=== PATIENT | female | born 1975 | race American Indian/Alaskan Native ===

== ENCOUNTER 2021-04-23 16:33 | Inpatient (IN) | payer BC ==
[2021-04-23] MEDS ORDERED: ACETAMINOPHEN 500 MG TAB PO ONE (19:00)
--- NOTE | 2021-04-23 19:01 | Emergency Department Report ---
Blank Doc - Documentation Documentation: 46 old female that presents with tachycardia, fever, upper respiratory symptoms. 1- This is a initial triage assessment/medical screening only. Full assessment and work-up will be completed once the patient is in proper hospital gown, ED bed and in a private room setting. This initial assessment/diagnostic orders/clinical plan/ treatment(s) is/are subject to change based on pt's health status, clinical progression and re-assessment by fellow clinical providers in the ED. Further treatment and workup at subsequent clinical providers discretion. Patient/guardians urged not to elope from ED as their condition may be serious if not clinically assessed and managed. 2-sepsis work-up due to tachycardia and fever. 3-Tylenol for fever
[2021-04-23 20:01] LABS: Basophils % (Auto) 0.6 % (0.0-1.8); Eosinophils % (Auto) 0.1 % (0.0-4.3); Hematocrit 38.3 % (30.3-42.9); Hemoglobin 12.7 gm/dl (10.1-14.3); Lymphocytes # (Auto) 0.7 K/mm3 (1.2-5.4); Lymphocytes % (Auto) 14.9 % (13.4-35.0); Mean Corpuscular HGB Conc 33 % (30-34); Mean Corpuscular Volume 77 fl (79-97); Monocytes # (Auto) 0.3 K/mm3 (0.0-0.8); Monocytes % (Auto) 6.8 % (0.0-7.3); Platelet Count 196 K/mm3 (140-440); Red Cell Distribution Width 16.1 % (13.2-15.2)
[2021-04-23 20:09] LABS: Albumin 3.5 g/dL (3.9-5)
[2021-04-23 20:09] LABS: INR 0.93 (0.87-1.13)
[2021-04-23 20:10] LABS: Partial Thromboplastin Time 37.5 Sec. (24.2-36.6)
--- NOTE | 2021-04-23 20:42 | XRay Report ---
XR chest routine 2V INDICATION / CLINICAL INFORMATION: Chest Pain. COMPARISON: None available. FINDINGS: Findings in the chest are accentuated by body habitus and phase of inspiration. SUPPORT DEVICES: None. HEART /PULMONARY VASCULATURE: No significant abnormality. LUNGS / PLEURA: Patchy bibasilar airspace opacities are present. No pneumothorax. ADDITIONAL FINDINGS: No significant additional findings. IMPRESSION: Patchy bibasilar airspace opacities, concerning for pneumonia. Signer Name: Mynor Prado MD Signed: 04/23/2021 8:38 PM Workstation Name: [id number]
--- NOTE | 2021-04-24 04:12 | Emergency Department Report ---
ED Shortness of Breath HPI - General Chief Complaint: Dyspnea/Respdistress Stated Complaint: SOB/FEVER/DIAHEREA/COUGH Time Seen by Provider: 04/23/21 19:01 Source: patient Mode of arrival: Wheelchair Limitations: Physical Limitation - History of Present Illness Initial Comments: 46-year-old female, reports prior history of CHF, presents to ED with shortness of breath. Patient reports cold-like symptoms for the past 10 days. She reports fever, cough, shortness of breath, diarrhea. Patient states she got tested for Covid a couple days ago but has not yet received the results. Patient is unvaccinated. MD Complaint: shortness of breath -: days(s) (10) Severity: moderate Consistency: constant Improves With: nothing Worsens With: exertion, coughing Context: recent URI Associated Symptoms: fever, cough Treatments Prior to Arrival: none - Related Data Home Oxygen Therapy: No Previous Rx's Medication Instructions Recorded Last Taken Type Albuterol Mdi (or & Nicu Only) 1 puff IH Q4-6H PRN #1 inha 08/28/18 Unknown Rx [ProAir HFA Inhaler] guaiFENesin/CODEINE [Robitussin AC] 5 ml PO Q6H PRN #120 ml 08/28/18 Unknown Rx levoFLOXacin [Levaquin TAB] 500 mg PO QDAY #7 tablet 08/28/18 Unknown Rx Allergies Allergy/AdvReac Type Severity Reaction Status Date / Time No Known Allergies Allergy Unverified 08/28/18 00:21 ED Review of Systems ROS: Stated complaint: SOB/FEVER/DIAHEREA/COUGH Other details as noted in HPI Comment: All other systems reviewed and negative Constitutional: fever, weakness Respiratory: cough, shortness of breath Gastrointestinal: diarrhea ED Past Medical Hx - Past Medical History Previous Medical History?: Yes Hx Hypertension: Yes Hx Congestive Heart Failure: Yes Additional medical history: Obesity - Surgical History Past Surgical History?: Yes Additional Surgical History: X 2 - Social History Smoking Status: Current Every Day Smoker Substance Use Type: None - Medications Home Medications: Home Medications Medication Instructions Recorded Confirmed Last Taken Type Albuterol Mdi (or & Nicu Only) 1 puff IH Q4-6H PRN #1 inha 08/28/18 Unknown Rx [ProAir HFA Inhaler] guaiFENesin/CODEINE [Robitussin AC] 5 ml PO Q6H PRN #120 ml 08/28/18 Unknown Rx levoFLOXacin [Levaquin TAB] 500 mg PO QDAY #7 tablet 08/28/18 Unknown Rx ED Physical Exam - General Limitations: Physical Limitation General appearance: alert, obese - Head Head exam: Present: atraumatic, normocephalic - Eye Eye exam: Present: normal appearance, EOMI - ENT ENT exam: Present: mucous membranes moist - Neck Neck exam: Present: normal inspection - Respiratory Respiratory exam: Present: respiratory distress, other (Tachypneic, actively coughing) - Cardiovascular Cardiovascular Exam: Present: normal rhythm, tachycardia - GI/Abdominal GI/Abdominal exam: Present: soft. Absent: distended, tenderness - Extremities Exam Extremities exam: Present: normal inspection - Neurological Exam Neurological exam: Present: alert, oriented X3 - Psychiatric Psychiatric exam: Present: normal affect, normal mood - Skin Skin exam: Present: warm, dry, intact, normal color ED Course Vital Signs 04/23/21 18:56 Temperature 102.1 F H Pulse Rate 134 H Respiratory 24 Rate Blood Pressure 110/83 O2 Sat by Pulse 96 Oximetry ED Medical Decision Making - Lab Data Result diagrams: 04/23/21 19:40 04/23/21 19:34 - EKG Data -: EKG Interpreted by Mt EKG shows normal: sinus rhythm, axis, intervals, QRS complexes, ST-T waves Rate: tachycardia - EKG Data Interpretation: no acute changes - Radiology Data Radiology results: report reviewed, image reviewed - Medical Decision Making 46-year-old female, unvaccinated, presents to ED with cold-like symptoms. Patient is tachypneic, with respiratory rate in the 30s, and hypoxic, with O2 sats dropping to 89%. Patient placed on 4 L O2 via nasal cannula. Chest x-ray shows bilateral pneumonia. Covid markers sent. Blood cultures drawn. Patient given Rocephin, azithromycin, Decadron. She will be admitted to hospitalist, Dr. Rivera, for further management. - Differential Diagnosis COVID-19, pneumonia Critical Care Time: Yes Critical care time in (mins) excluding proc time.: 35 Critical care attestation.: If time is entered above; I have spent that time in minutes in the direct care of this critically ill patient, excluding procedure time. Critical Care Time: 35 min ED Disposition Clinical Impression: Pneumonia, Sepsis, Suspected COVID-19 virus infection, Acute respiratory failure with hypoxia Disposition: ADMITTED INPATIENT Is pt being admited?: Yes Condition: Stable Instructions: Bacterial Pneumonia (ED) Referrals: PRIMARY CARE, [Primary Care Provider] - 3-5 Days Time of Disposition: 04:48
[2021-04-24] MEDS ORDERED: AZITHROMYCIN 250 MG TAB PO ONE (04:23)
[2021-04-24] MEDS ORDERED: cefTRIAXone/NS 1 GM/50 ML 1 GM/50 ML BAG IV ONE (04:23)
[2021-04-24] MEDS ORDERED: DEXAMETHASONE 4 MG TAB PO ONE (04:23)
[2021-04-24] MEDS ORDERED: IBUPROFEN 800 MG TAB PO ONE (05:02)
[2021-04-24] MEDS ORDERED: ACETAMINOPHEN 325 MG TAB PO PRN (05:38)
[2021-04-24] MEDS ORDERED: oxyCODONE /ACETAMINOPHEN 5-325MG TAB PO PRN (05:38)
[2021-04-24] MEDS ORDERED: ONDANSETRON 4 MG/2 ML INJ IV PRN (05:38)
[2021-04-24] MEDS ORDERED: ALBUTEROL 2.5 MG/3 ML NEBU IH PRN (05:38)
[2021-04-24] MEDS ORDERED: HYDROmorphone 1 MG/1 ML INJ IV PRN (05:38)
[2021-04-24] MEDS ORDERED: ALBUTEROL 8.5 GM MDI INHALATION IH PRN (05:40)
[2021-04-24] MEDS ORDERED: guaiFENesin/CODEINE 100-10MG ORAL LIQD 5 ML PO PRN (05:40)
--- NOTE | 2021-04-24 05:46 | History and Physical Report ---
History of Present Illness Date of examination: 04/24/21 Date of admission: 04/24/21 Chief complaint: Shortness of breath fever cough Covid like symptom History of present illness: 46-year-old female with past medical history of congestive heart failure was brought to the emergency room because patient complained of progressive shortness of breath associated with cough and fever for the last 10 days .she reports fever, cough, shortness of breath, diarrhea. Patient states she got tested for Covid a couple days ago but has not yet received the results. Patient is unvaccinated. In the emergency room patient chest x-ray showed patchy bibasilar airspace opaci ties concerning for pneumonia. Med rec is done . Advance discharge planning is initiated Past History Past Medical History: heart failure, other (Obesity) Medications and Allergies Allergies Allergy/AdvReac Type Severity Reaction Status Date / Time No Known Allergies Allergy Verified 04/24/21 05:47 Home Medications Medication Instructions Recorded Confirmed Last Taken Type Albuterol Mdi (or & Nicu Only) 1 puff IH Q4-6H PRN #1 inha 08/28/18 Unknown Rx [ProAir HFA Inhaler] guaiFENesin/CODEINE [Robitussin AC] 5 ml PO Q6H PRN #120 ml 08/28/18 Unknown Rx levoFLOXacin [Levaquin TAB] 500 mg PO QDAY #7 tablet 08/28/18 Unknown Rx Review of Systems All systems: negative Constitutional: fever Cardiovascular: shortness of breath, dyspnea on exertion Respiratory: cough, shortness of breath, dyspnea on exertion Exam - Constitutional Vitals: Temp Pulse Resp BP Pulse Ox 100.5 F H 119 H 33 H 153/91 89 04/24/21 05:33 04/24/21 05:33 04/24/21 05:33 04/24/21 05:33 04/24/21 05:39 General appearance: Present: no acute distress, well-nourished - EENT Eyes: Present: PERRL ENT: hearing intact, clear oral mucosa - Neck Neck: Present: supple, normal ROM - Respiratory Respiratory effort: normal Respiratory: bilateral: diminished - Cardiovascular Heart Sounds: Present: S1 & S2. Absent: rub, click - Extremities Extremities: pulses symmetrical, No edema Peripheral Pulses: within normal limits - Abdominal General gastrointestinal: Present: soft, non-tender, non-distended, normal bowel sounds Female genitourinary: Present: normal - Integumentary Integumentary: Present: clear, warm, dry - Musculoskeletal Musculoskeletal: gait normal, strength equal bilaterally - Psychiatric Psychiatric: appropriate mood/affect, intact judgment & insight - Neurologic Neurologic: CNII-XII intact, moves all extremities Results - Labs CBC & Chem 7: 04/23/21 19:40 04/23/21 19:34 Labs: Laboratory Last Values WBC 4.5 K/mm3 (4.5-11.0) 04/23/21 19:40 RBC 5.00 M/mm3 (3.65-5.03) 04/23/21 19:40 Hgb 12.7 gm/dl (10.1-14.3) 04/23/21 19:40 Hct 38.3 % (30.3-42.9) 04/23/21 19:40 MCV 77 fl (79-97) L 04/23/21 19:40 MCH 25 pg (28-32) L 04/23/21 19:40 MCHC 33 % (30-34) 04/23/21 19:40 RDW 16.1 % (13.2-15.2) H 04/23/21 19:40 Plt Count 196 K/mm3 (140-440) 04/23/21 19:40 Lymph % (Auto) 14.9 % (13.4-35.0) 04/23/21 19:40 [place] % (Auto) 6.8 % (0.0-7.3) 04/23/21 19:40 Eos % (Auto) 0.1 % (0.0-4.3) 04/23/21 19:40 Baso % (Auto) 0.6 % (0.0-1.8) 04/23/21 19:40 Lymph # (Auto) 0.7 K/mm3 (1.2-5.4) L 04/23/21 19:40 [place]ett # (Auto) 0.3 K/mm3 (0.0-0.8) 04/23/21 19:40 Eos # (Auto) 0.0 K/mm3 (0.0-0.4) 04/23/21 19:40 Baso # (Auto) 0.0 K/mm3 (0.0-0.1) 04/23/21 19:40 Seg Neutrophils % 77.6 % (40.0-70.0) H 04/23/21 19:40 Seg Neutrophils # 3.5 K/mm3 (1.8-7.7) 04/23/21 19:40 PT 13.1 Sec. (12.2-14.9) 04/23/21 19:40 INR 0.93 (0.87-1.13) 04/23/21 19:40 APTT 37.5 Sec. (24.2-36.6) H 04/23/21 19:40 Sodium 132 mmol/L (137-145) L 04/23/21 19:34 Potassium 3.9 mmol/L (3.6-5.0) 04/23/21 19:34 Chloride 95.9 mmol/L (98-107) L 04/23/21 19:34 Carbon Dioxide 21 mmol/L (22-30) L 04/23/21 19:34 Anion Gap 19 mmol/L 04/23/21 19:34 BUN 13 mg/dL (7-17) 04/23/21 19:34 Creatinine 1.3 mg/dL (0.6-1.2) H 04/23/21 19:34 Estimated GFR 54 ml/min 04/23/21 19:34 BUN/Creatinine Ratio 10 % 04/23/21 19:34 Glucose 100 mg/dL (65-100) 04/23/21 19:34 Lactic Acid 1.10 mmol/L (0.7-2.0) 04/23/21 23:24 Calcium 9.0 mg/dL (8.4-10.2) 04/23/21 19:34 Total Bilirubin 0.20 mg/dL (0.1-1.2) 04/23/21 19:34 AST 88 units/L (5-40) H 04/23/21 19:34 ALT 28 units/L (7-56) 04/23/21 19:34 Alkaline Phosphatase 25 units/L (35-129) L 04/23/21 19:34 Total Protein 7.4 g/dL (6.3-8.2) 04/23/21 19:34 Albumin 3.5 g/dL (3.9-5) L 04/23/21 19:34 Albumin/Globulin Ratio 0.9 % 04/23/21 19:34 HCG, Qual Negative (Negative) 04/23/21 19:40 Microbiology: Microbiology 04/23/21 19:34 Peripheral/Venous Blood Culture - Preliminary Culture in Progress 04/23/21 19:34 Peripheral/Venous Blood Culture - Preliminary Culture in Progress - Imaging and Cardiology Chest x-ray: report reviewed Assessment and Plan VTE prophylaxis?: Chemical Plan of care discussed with patient/family: Yes - Patient Problems (1) Acute respiratory failure with hypoxia Current Visit: Yes Status: Acute Plan to address problem: Admit the patient to the medical telemetry. Oxygen via nasal penetrator per minute DuoNeb by nebulizer every 4 hours. Albuterol via nebulizer every 4 hours as needed. Dexamethasone 6 mg IV daily. Rocephin 2 g IV daily and Zithromax 500 mg IV daily. We will do the blood cultures sputum culture. Follow Covid PCR and Covid inflammatory marker. We also consult infectious disease evaluation (2) Suspected COVID-19 virus infection Current Visit: Yes Status: Acute Plan to address problem: Oxygen via nasal penetrator per minute DuoNeb by nebulizer every 4 hours. Albuterol via nebulizer every 4 hours as needed. Dexamethasone 6 mg IV daily. Rocephin 2 g IV daily and Zithromax 500 mg IV daily. We will do the blood cul tures sputum culture. Follow Covid PCR and Covid inflammatory marker. We also consult infectious disease evaluation (3) Pneumonia Current Visit: Yes Status: Acute Plan to address problem: Rocephin 2 g IV daily and Zithromax 500 mg IV daily. We will do the blood cultures sputum culture. Follow Covid PCR and Covid inflammatory marker. We also consult infectious disease evaluation (4) Congestive heart failure Current Visit: Yes Status: Acute Plan to address problem: Stable we will continue the home medication. We will monitor the patient closely (5) Obesity Current Visit: Yes Status: Acute Plan to address problem: We counseled the patient regarding weight reduction and diet and exercise (6) DVT prophylaxis Current Visit: Yes Status: Acute Plan to address problem: Heparin 5000 units subcu every 8 hours for DVT prophylaxis. Pepcid 20 mg p.o. twice daily for GI prophylaxis. Patient is a full code
[2021-04-24] MEDS ORDERED: cefTRIAXone/NS 2 GM/100 ML 2 GM/100 ML BAG IV SCH (06:00)
[2021-04-24] MEDS ORDERED: HEPARIN 5,000 UNIT/1 ML VIAL SUB-Q SCH (06:00)
[2021-04-24] MEDS ORDERED: AZITHROMYCIN/NS 500 MG/250 ML 500 MG/250 ML BAG IV SCH (06:00)
[2021-04-24 11:05] LABS: C-Reactive Protein 6.2 mg/dL (0.00-1.30)
--- NOTE | 2021-04-24 11:07 | Electrocardiograph Report ---
[facility] Test Date: 2021-04-23 Test Time: 19:07:57 Pat Name: SONYA MEANS Department: Room: [place] [address] Gender: F Building Carpenter Helper: CONI : 1975 Requested By: RENATA BRAXTON Order Number: [id number] Reading MD: Romel Shelby Measurements Intervals [place] Rate: 123 P: 49 MN: 128 QRS: -1 QRSD: 78 T: 16 QT: 304 QTc: 435 Interpretive Statements Sinus tachycardia Probable left atrial enlargement Anterior Q waves, possibly due to LVH No previous ECG available for comparison Electronically Signed On 04-24-2021 11:07:17 EDT by Romel Shelby
--- NOTE | 2021-04-24 12:12 | Event Note ---
Date: 04/24/21 Patient seen and examined, still with shortness of breath, Patients states she has a hx of CHF but was diagnosed a few years ago but has not been on any medications, she did not get covid vaccine, there is no lower ext edema except for noted morbid obesity. she is anxious and continues on 4 liters of oxygen. Will continue current therapy at this time.
--- NOTE | 2021-04-24 14:03 | Consultation ---
History of Present Illness Consult date: 04/24/21 History of present illness: 46-year-old female with past medical history of congestive heart failure was brought to the emergency room because patient complained of progressive shortness of breath associated with cough and fever for the last 10 days .she reports fever, cough, shortness of breath, diarrhea. Patient states she got tested for Covid a couple days ago but has not yet received the results. Patient is unvaccinated. In the emergency room patient chest x-ray showed patchy bibasilar airspace opacities concerning for pneumonia. Past History Past Medical History: heart failure, other (Obesity) Medications and Allergies Allergies Allergy/AdvReac Type Severity Reaction Status Date / Time No Known Allergies Allergy Verified 04/24/21 05:47 Home Medications Medication Instructions Recorded Confirmed Last Taken Type Albuterol Mdi (or & Nicu Only) 1 puff IH Q4-6H PRN #1 inha 08/28/18 Unknown Rx [ProAir HFA Inhaler] guaiFENesin/CODEINE [Robitussin AC] 5 ml PO Q6H PRN #120 ml 08/28/18 Unknown Rx levoFLOXacin [Levaquin TAB] 500 mg PO QDAY #7 tablet 08/28/18 Unknown Rx Active Meds: Active Medications Acetaminophen (Acetaminophen 325 Mg Tab) 650 mg PO Q4H PRN PRN Reason: Pain MILD(1-3)/Fever >100.5/DELCID Albuterol (Albuterol 2.5 Mg/3 Ml Nebu) 2.5 mg IH Q4HRT PRN PRN Reason: Shortness Of Breath Albuterol/Ipratropium (Ipratropium/Albuterol Sulfate 3 Ml Ampul.Neb) 1 ampul IH Q6HRT CHEPE Famotidine (Famotidine 20 Mg Tab) 20 mg PO BID CHEPE Heparin Sodium (Porcine) (Heparin 5,000 Unit/1 Ml Vial) 5,000 unit SUB-Q Q8HR CHEPE Hydromorphone HCl (Hydromorphone 1 Mg/1 Ml Inj) 0.5 mg IV Q3H PRN PRN Reason: Pain , Severe (7-10) Azithromycin (Zithromax/Ns) 500 mg in 250 mls @ 250 mls/hr IV 0700 CHEPE; Protocol Stop: 04/28/21 07:59 Ceftriaxone Sodium (Rocephin/Ns 2 Gm/100 Ml) 2 gm in 100 mls @ 200 mls/hr IV 0700 CHEPE; Protocol Stop: 04/28/21 07:29 Ondansetron HCl (Ondansetron 4 Mg/2 Ml Inj) 4 mg IV Q8H PRN PRN Reason: Nausea And Vomiting Oxycodone/Acetaminophen (Oxycodone /Acetaminophen 5-325mg Tab) 1 tab PO Q6H PRN PRN Reason: Pain, Moderate (4-6) Pseudoephedrine/Acetam/Chlorphenir (Guaifenesin/Codeine 100-10mg Oral Liqd 5 Ml) 5 ml PO Q6H PRN PRN Reason: Cough Sodium Chloride (Sodium Chloride 0.9% 10 Ml Flush Syringe) 10 ml IV BID CHEPE Sodium Chloride (Sodium Chloride 0.9% 10 Ml Flush Syringe) 10 ml IV PRN PRN PRN Reason: LINE FLUSH Review of Systems All systems: negative Physical Examination Vital signs: Vital Signs Temp Pulse Resp BP Pulse Ox 102.1 F H 134 H 24 110/83 96 04/23/21 18:56 04/23/21 18:56 04/23/21 18:56 04/23/21 18:56 04/23/21 18:56 Results - Laboratory Findings CBC and BMP: 04/23/21 19:40 04/24/21 09:51 PT/INR, D-dimer PT 13.1 Sec. (12.2-14.9) 04/23/21 19:40 INR 0.93 (0.87-1.13) 04/23/21 19:40 Abnormal lab findings: Abnormal Labs 04/23/21 04/23/21 04/23/21 19:34 19:40 19:40 MCV 77 L MCH 25 L RDW 16.1 H Lymph # (Auto) 0.7 L Seg Neutrophils % 77.6 H APTT 37.5 H Sodium 132 L Chloride 95.9 L Carbon Dioxide 21 L Creatinine 1.3 H Glucose AST 88 H Alkaline Phosphatase 25 L Lactate Dehydrogenase C-Reactive Protein Albumin 3.5 L 04/24/21 09:51 MCV MCH RDW Lymph # (Auto) Seg Neutrophils % APTT Sodium Chloride Carbon Dioxide Creatinine Glucose 102 H AST Alkaline Phosphatase Lactate Dehydrogenase 605 H C-Reactive Protein 6.20 H Albumin - Diagnostic Findings Chest x-ray: report reviewed, image reviewed Additional studies: XR chest routine 2V 04/23/21 INDICATION / CLINICAL INFORMATION: Chest Pain. COMPARISON: None available. FINDINGS: Findings in the chest are accentuated by body habitus and phase of inspiration. SUPPORT DEVICES: None. HEART /PULMONARY VASCULATURE: No significant abnormality. LUNGS / PLEURA: Patchy bibasilar airspace opacities are present. No pneumothorax. ADDITIONAL FINDINGS: No significant additional findings. IMPRESSION: Patchy bibasilar airspace opacities, concerning for pneumonia.
--- NOTE | 2021-04-24 14:04 | Consultation ---
<RONI SIMMS - Last Filed: 04/24/21 14:12> History of Present Illness Consult date: 04/24/21 Requesting physician: SUSIE PARHAM Consult reason: congestive heart failure History of present illness: Patient is a 46 year old female with a PMHx of CHF who presents to the ED with complaints of SOB, chest pain, and a cough for 10 days. The patient reports that the symptoms have progressively worsened. She reports that she has tested positive for COVID-19. The patient further reports that she has nausea, vomiting, diarrhea, dyspnea on exertion, and fevers throughout the 10 days. She states that she has not been able to relieve the symptoms. She describes her chest pain as crushing and says it is located on the left side of the chest. She reports that the occurs when coughing and upon palpation of her chest. Cardiology is consulted for heart failure. The patient reports that she has a pmx of chf(diagnosed in 2013) but does not know her EF and states she has not followed a history teacher and does not take any home medications. Past History Past Medical History: heart failure, other (Obesity) Past Surgical History: No surgical history Social history: no significant social history Family history: no significant family history Medications and Allergies Allergies Allergy/AdvReac Type Severity Reaction Status Date / Time No Known Allergies Allergy Verified 04/24/21 05:47 Home Medications Medication Instructions Recorded Confirmed Last Taken Type Albuterol Mdi (or & Nicu Only) 1 puff IH Q4-6H PRN #1 inha 08/28/18 Unknown Rx [ProAir HFA Inhaler] guaiFENesin/CODEINE [Robitussin AC] 5 ml PO Q6H PRN #120 ml 08/28/18 Unknown Rx levoFLOXacin [Levaquin TAB] 500 mg PO QDAY #7 tablet 08/28/18 Unknown Rx Active Meds: Active Medications Acetaminophen (Acetaminophen 325 Mg Tab) 650 mg PO Q4H PRN PRN Reason: Pain MILD(1-3)/Fever >100.5/DELCID Albuterol (Albuterol 2.5 Mg/3 Ml Nebu) 2.5 mg IH Q4HRT PRN PRN Reason: Shortness Of Breath Albuterol/Ipratropium (Ipratropium/Albuterol Sulfate 3 Ml Ampul.Neb) 1 ampul IH Q6HRT [facility] Famotidine (Famotidine 20 Mg Tab) 20 mg PO BID [facility] Heparin Sodium (Porcine) (Heparin 5,000 Unit/1 Ml Vial) 5,000 unit SUB-Q Q8HR [facility] Hydromorphone HCl (Hydromorphone 1 Mg/1 Ml Inj) 0.5 mg IV Q3H PRN PRN Reason: Pain , Severe (7-10) Azithromycin (Zithromax/Ns) 500 mg in 250 mls @ 250 mls/hr IV 0700 [facility]; Protocol Stop: 04/28/21 07:59 Ceftriaxone Sodium (Rocephin/Ns 2 Gm/100 Ml) 2 gm in 100 mls @ 200 mls/hr IV 0700 [facility]; Protocol Stop: 04/28/21 07:29 Ondansetron HCl (Ondansetron 4 Mg/2 Ml Inj) 4 mg IV Q8H PRN PRN Reason: Nausea And Vomiting Oxycodone/Acetaminophen (Oxycodone /Acetaminophen 5-325mg Tab) 1 tab PO Q6H PRN PRN Reason: Pain, Moderate (4-6) Pseudoephedrine/Acetam/Chlorphenir (Guaifenesin/Codeine 100-10mg Oral Liqd 5 Ml) 5 ml PO Q6H PRN PRN Reason: Cough Sodium Chloride (Sodium Chloride 0.9% 10 Ml Flush Syringe) 10 ml IV BID [facility] Sodium Chloride (Sodium Chloride 0.9% 10 Ml Flush Syringe) 10 ml IV PRN PRN PRN Reason: LINE FLUSH Review of Systems All systems: negative Constitutional: fever, chills, no weight loss, no weight gain Ears, nose, mouth and throat: no ear pain, no ear discharge, no decreased hearing, no nasal congestion Cardiovascular: chest pain, orthopnea, shortness of breath, dyspnea on exertion, no palpitations, no rapid/irregular heart beat, no edema, no syncope Respiratory: cough, shortness of breath, no cough with sputum, no excessive sputum, no hemoptysis, no dyspnea on exertion Gastrointestinal: nausea, vomiting, diarrhea, no abdominal pain Musculoskeletal: no neck stiffness, no neck pain, no shooting arm pain, no arm numbness/tingling, no low back pain Integumentary: no rash, no pruritis, no redness, no sores Neurological: no head injury, no transient paralysis, no paralysis, no weakness Psychiatric: no anxiety, no memory loss Endocrine: no cold intolerance, no heat intolerance Hematologic/Lymphatic: no easy bruising, no easy bleeding Physical Examination Last Vital Signs Temp 100.5 F H 04/24/21 05:33 Pulse 119 H 04/24/21 05:44 Resp 33 H 04/24/21 05:33 BP 127/84 04/24/21 05:44 Pulse Ox 89 04/24/21 05:44 General appearance: no acute distress HEENT: Positive: PERRL Neck: Positive: neck supple, trachea midline Cardiac: Positive: Regular Rhythm, S1/S2, Tachycardia Lungs: Positive: Rales Neuro: Positive: Grossly Intact Abdomen: Positive: Soft, Active Bowel Sounds Skin: Negative: Rash, Suspicious Lesions, Ulceration Extremities: Present: upper extr. pulses, lower extr. pulses, edema Results 04/23/21 19:40 04/24/21 09:51 Cardiac Enzymes 04/23/21 04/24/21 Range/Units 19:34 09:51 AST 88 H (5-40) units/L Lactate Dehydrogenase 605 H (91-180) units/L Coagulation 04/23/21 Range/Units 19:40 PT 13.1 (12.2-14.9) Sec. INR 0.93 (0.87-1.13) APTT 37.5 H (24.2-36.6) Sec. CBC 04/23/21 Range/Units 19:40 WBC 4.5 (4.5-11.0) K/mm3 RBC 5.00 (3.65-5.03) M/mm3 Hgb 12.7 (10.1-14.3) gm/dl Hct 38.3 (30.3-42.9) % Plt Count 196 (140-440) K/mm3 Lymph # (Auto) 0.7 L (1.2-5.4) K/mm3 Lane # (Auto) 0.3 (0.0-0.8) K/mm3 Eos # (Auto) 0.0 (0.0-0.4) K/mm3 Baso # (Auto) 0.0 (0.0-0.1) K/mm3 Comprehensive Metabolic Panel 04/23/21 04/24/21 Range/Units 19:34 09:51 Sodium 132 L (137-145) mmol/L Potassium 3.9 (3.6-5.0) mmol/L Chloride 95.9 L (98-107) mmol/L Carbon Dioxide 21 L (22-30) mmol/L BUN 13 (7-17) mg/dL Creatinine 1.3 H (0.6-1.2) mg/dL Glucose 100 102 H (65-100) mg/dL Calcium 9.0 (8.4-10.2) mg/dL AST 88 H (5-40) units/L ALT 28 (7-56) units/L Alkaline Phosphatase 25 L (35-129) units/L Total Protein 7.4 (6.3-8.2) g/dL Albumin 3.5 L (3.9-5) g/dL - Imaging and Cardiology Echo: pending EKG: report reviewed EKG interpretations - Telemetry EKG Rhythm: Sinus Tachycardia - EKG Sinus rhythms and dysrhythmias: sinus tachycardia Assessment and Plan Chest pain CHF * Pain worse with coughing and palpation * EKG shows sinus tach 123 with no acute ischemic changes. Patient sinus 116 on monitor. Troponins pending * Echo pending * BNP pending Acute hypoxic respiratory failure PNA Suspected COVID-19 * Patient reports not being vaccinated and testing positive for COVID-19 * ID consulted * Management per primary team Patient seen in conjunction with Dr. Good who agrees with this plan. Will continue to follow - Patient Problems (1) Acute respiratory failure with hypoxia Current Visit: Yes Status: Acute (2) Congestive heart failure Current Visit: Yes Status: Acute (3) Obesity Current Visit: Yes Status: Acute (4) Pneumonia Current Visit: Yes Status: Acute (5) Suspected COVID-19 virus infection Current Visit: Yes Status: Acute <ALISON GOOD R - Last Filed: 04/24/21 17:21> Medications and Allergies Active Meds: Active Medications Acetaminophen (Acetaminophen 325 Mg Tab) 650 mg PO Q4H PRN PRN Reason: Pain MILD(1-3)/Fever >100.5/DELCID Albuterol (Albuterol 2.5 Mg/3 Ml Nebu) 2.5 mg IH Q4HRT PRN PRN Reason: Shortness Of Breath Albuterol/Ipratropium (Ipratropium/Albuterol Sulfate 3 Ml Ampul.Neb) 1 ampul IH Q6HRT [facility] Dexamethasone (Dexamethasone 4 Mg/Ml Vial) 8 mg IV DAILY [facility] Stop: 05/04/21 16:59 Famotidine (Famotidine 20 Mg Tab) 20 mg PO BID [facility] Heparin Sodium (Porcine) (Heparin 5,000 Unit/1 Ml Vial) 5,000 unit SUB-Q Q8HR [facility] Hydromorphone HCl (Hydromorphone 1 Mg/1 Ml Inj) 0.5 mg IV Q3H PRN PRN Reason: Pain , Severe (7-10) REMDESIVIR 200 mg/ Sodium (Chloride) 250 mls @ 500 mls/hr IV ONCE ONE Stop: 04/24/21 17:29 REMDESIVIR 100 mg/ Sodium (Chloride) 250 mls @ 500 mls/hr IV Q24HR@2100 [facility] Stop: 04/28/21 21:29 Ondansetron HCl (Ondansetron 4 Mg/2 Ml Inj) 4 mg IV Q8H PRN PRN Reason: Nausea And Vomiting Oxycodone/Acetaminophen (Oxycodone /Acetaminophen 5-325mg Tab) 1 tab PO Q6H PRN PRN Reason: Pain, Moderate (4-6) Pseudoephedrine/Acetam/Chlorphenir (Guaifenesin/Codeine 100-10mg Oral Liqd 5 Ml) 5 ml PO Q6H PRN PRN Reason: Cough Sodium Chloride (Sodium Chloride 0.9% 10 Ml Flush Syringe) 10 ml IV BID [facility] Sodium Chloride (Sodium Chloride 0.9% 10 Ml Flush Syringe) 10 ml IV PRN PRN PRN Reason: LINE FLUSH Sodium Chloride (Sodium Chloride 0.9% 50 Ml Ivpb) 50 ml IV Q24HR@2100 [facility] Stop: 04/27/21 21:01 Physical Examination Vital Signs Temp Pulse Resp BP Pulse Ox 102.1 F H 134 H 24 110/83 96 04/23/21 18:56 04/23/21 18:56 04/23/21 18:56 04/23/21 18:56 04/23/21 18:56 Results 04/23/21 19:40 04/24/21 09:51 Cardiac Enzymes 04/23/21 04/24/21 Range/Units 19:34 09:51 AST 88 H (5-40) units/L Lactate Dehydrogenase 605 H (91-180) units/L Coagulation 08/15/21 Range/Units 19:40 PT 13.1 (12.2-14.9) Sec. INR 0.93 (0.87-1.13) APTT 37.5 H (24.2-36.6) Sec. CBC 04/23/21 Range/Units 19:40 WBC 4.5 (4.5-11.0) K/mm3 RBC 5.00 (3.65-5.03) M/mm3 Hgb 12.7 (10.1-14.3) gm/dl Hct 38.3 (30.3-42.9) % Plt Count 196 (140-440) K/mm3 Lymph # (Auto) 0.7 L (1.2-5.4) K/mm3 Lane # (Auto) 0.3 (0.0-0.8) K/mm3 Eos # (Auto) 0.0 (0.0-0.4) K/mm3 Baso # (Auto) 0.0 (0.0-0.1) K/mm3 Comprehensive Metabolic Panel 04/23/21 04/24/21 Range/Units 19:34 09:51 Sodium 132 L (137-145) mmol/L Potassium 3.9 (3.6-5.0) mmol/L Chloride 95.9 L (98-107) mmol/L Carbon Dioxide 21 L (22-30) mmol/L BUN 13 (7-17) mg/dL Creatinine 1.3 H (0.6-1.2) mg/dL Glucose 100 102 H (65-100) mg/dL Calcium 9.0 (8.4-10.2) mg/dL AST 88 H (5-40) units/L ALT 28 (7-56) units/L Alkaline Phosphatase 25 L (35-129) units/L Total Protein 7.4 (6.3-8.2) g/dL Albumin 3.5 L (3.9-5) g/dL Assessment and Plan Echo showed mild LVH,otherwise preserved LVEF 50-55%,with no significant diastolic dysfunction.No significant valvular disease noted.Await troponins.EKG showing sinus tachycardia,otherwise no significant abnormalities noted.
--- NOTE | 2021-04-24 16:43 | Consultation ---
History of Present Illness - Reason for Consult Consult date: 04/24/21 COVID Requesting physician: MELODY WHITTEN - History of Present Illness The patient is a 46-year-old female with history of CHF admitted to the hospital with cough, fever, shortness of breath worsening over 10 days. She is unvaccinated against COVID-19. Her chest x-ray showed bilateral opacities. Patient was also noted to be hypoxic requiring supplemental oxygen, currently at 4 L by nasal cannula. T-max was 102.1 F. COVID-19 test has come back as positive. Infectious diseases was consulted for additional evaluation. WBC 4.5, D-dimer 1250, creatinine 1.3, LDH 605, CRP 6.2, procalcitonin 0.05. Review of Systems: reviewed in the chart, unable to obtain, minimize risk of transmission Past History Past Medical History: heart failure, other (Obesity) Past Surgical History: No surgical history Social history: no significant social history Family history: no significant family history Medications and Allergies Allergies Allergy/AdvReac Type Severity Reaction Status Date / Time No Known Allergies Allergy Verified 04/24/21 05:47 Home Medications Medication Instructions Recorded Confirmed Last Taken Type Albuterol Mdi (or & Nicu Only) 1 puff IH Q4-6H PRN #1 inha 08/28/18 Unknown Rx [ProAir HFA Inhaler] guaiFENesin/CODEINE [Robitussin AC] 5 ml PO Q6H PRN #120 ml 08/28/18 Unknown Rx levoFLOXacin [Levaquin TAB] 500 mg PO QDAY #7 tablet 08/28/18 Unknown Rx Active Meds: Active Medications Acetaminophen (Acetaminophen 325 Mg Tab) 650 mg PO Q4H PRN PRN Reason: Pain MILD(1-3)/Fever >100.5/DELCID Albuterol (Albuterol 2.5 Mg/3 Ml Nebu) 2.5 mg IH Q4HRT PRN PRN Reason: Shortness Of Breath Albuterol/Ipratropium (Ipratropium/Albuterol Sulfate 3 Ml Ampul.Neb) 1 ampul IH Q6HRT [facility] Dexamethasone (Dexamethasone 4 Mg/Ml Vial) 8 mg IV DAILY [facility] Stop: 05/04/21 16:59 Famotidine (Famotidine 20 Mg Tab) 20 mg PO BID [facility] Heparin Sodium (Porcine) (Heparin 5,000 Unit/1 Ml Vial) 5,000 unit SUB-Q Q8HR [facility] Hydromorphone HCl (Hydromorphone 1 Mg/1 Ml Inj) 0.5 mg IV Q3H PRN PRN Reason: Pain , Severe (7-10) REMDESIVIR 200 mg/ Sodium (Chloride) 250 mls @ 500 mls/hr IV ONCE ONE Stop: 04/24/21 17:10 REMDESIVIR 100 mg/ Sodium (Chloride) 250 mls @ 500 mls/hr IV Q24HR@2100 [facility] Stop: 04/28/21 21:29 Ondansetron HCl (Ondansetron 4 Mg/2 Ml Inj) 4 mg IV Q8H PRN PRN Reason: Nausea And Vomiting Oxycodone/Acetaminophen (Oxycodone /Acetaminophen 5-325mg Tab) 1 tab PO Q6H PRN PRN Reason: Pain, Moderate (4-6) Pseudoephedrine/Acetam/Chlorphenir (Guaifenesin/Codeine 100-10mg Oral Liqd 5 Ml) 5 ml PO Q6H PRN PRN Reason: Cough Sodium Chloride (Sodium Chloride 0.9% 10 Ml Flush Syringe) 10 ml IV BID [facility] Sodium Chloride (Sodium Chloride 0.9% 10 Ml Flush Syringe) 10 ml IV PRN PRN PRN Reason: LINE FLUSH Sodium Chloride (Sodium Chloride 0.9% 50 Ml Ivpb) 50 ml IV Q24HR@2100 [facility] Stop: 04/28/21 21:01 Physical Examination - Physical Exam Narrative exam: Physical Exam (reviewed in chart to minimize risk of transmission) Constitutional: deferred Head, Ears, Nose: deferred Eyes: deferred Neck: deferred Oral: deferred Cardiovascular: deferred Respiratory: deferred GI: deferred Musculoskeletal: deferred Skin: deferred Hem/Lymphatic: deferred Psych: deferred Neurological: deferred - Constitutional Vitals: Vital Signs Temp Pulse Resp BP Pulse Ox 100.5 F H 119 H 33 H 127/84 89 04/24/21 05:33 04/24/21 05:44 04/24/21 05:33 04/24/21 05:44 04/24/21 05:44 Temperature -Last 24 Hours Temperature 100.5 F Temperature 102.1 F Results - Labs CBC & Chem 7: 04/23/21 19:40 08/16/21 09:51 Labs: Abnormal lab results 04/23/21 04/23/21 04/23/21 Range/Units 19:34 19:40 19:40 MCV 77 L (79-97) fl MCH 25 L (28-32) pg RDW 16.1 H (13.2-15.2) % Lymph # (Auto) 0.7 L (1.2-5.4) K/mm3 Seg Neutrophils % 77.6 H (40.0-70.0) % APTT 37.5 H (24.2-36.6) Sec. D-Dimer (0-234) ng/mlDDU Sodium 132 L (137-145) mmol/L Chloride 95.9 L (98-107) mmol/L Carbon Dioxide 21 L (22-30) mmol/L Creatinine 1.3 H (0.6-1.2) mg/dL Glucose (65-100) mg/dL AST 88 H (5-40) units/L Alkaline Phosphatase 25 L (35-129) units/L Lactate Dehydrogenase (91-180) units/L C-Reactive Protein (0.00-1.30) mg/dL Albumin 3.5 L (3.9-5) g/dL Coronavirus (PCR) (Negative) 04/24/21 04/24/21 04/24/21 Range/Units 09:51 14:58 Unknown MCV (79-97) fl MCH (28-32) pg RDW (13.2-15.2) % Lymph # (Auto) (1.2-5.4) K/mm3 Seg Neutrophils % (40.0-70.0) % APTT (24.2-36.6) Sec. D-Dimer 1250.51 H (0-234) ng/mlDDU Sodium (137-145) mmol/L Chloride (98-107) mmol/L Carbon Dioxide (22-30) mmol/L Creatinine (0.6-1.2) mg/dL Glucose 102 H (65-100) mg/dL AST (5-40) units/L Alkaline Phosphatase (35-129) units/L Lactate Dehydrogenase 605 H (91-180) units/L C-Reactive Protein 6.20 H (0.00-1.30) mg/dL Albumin (3.9-5) g/dL Coronavirus (PCR) Positive A (Negative) - Imaging and Cardiology Chest x-ray: report reviewed, image reviewed (b/l pna) Assessment and Plan Cultures: SARS CoV2 PCR: Positive Blood culture: In process A/P: 46-year-old female with CHF: #Bilateral pneumonia: Secondary to COVID-19 #Acute hypoxic respiratory failure: Requiring nasal cannula. Secondary to COVID-19. #CHF: cardiology on board. #Morbid obesity Recs: IV/PO Dexamethasone 8 mg daily x 10 days, higher dose due to morbid obesity Remdesivir ordered prophylactic anticoagulation based on d-dimer per hospital protocol trend ferritin, LDH, d-dimer, CRP every 2-3 days for risk stratification and to assess disease progression Antibiotics discontinued Roselyn Lundy MD, FACP [facility] O: [phone] F: [phone]
[2021-04-24] MEDS ORDERED: REMDESIVIR 200 MG in SODIUM CHLORIDE 0.9% 250ML 250 ML IV ONE (17:00)
[2021-04-24 17:55] LABS: Albumin 3.2 g/dL (3.9-5); Calcium 8.7 mg/dL (8.4-10.2)
[2021-04-25 06:19] LABS: Basophils % (Auto) 0.7 % (0.0-1.8); Eosinophils % (Auto) 0.5 % (0.0-4.3); Hematocrit 35.3 % (30.3-42.9); Hemoglobin 11.6 gm/dl (10.1-14.3); Lymphocytes # (Auto) 0.5 K/mm3 (1.2-5.4); Lymphocytes % (Auto) 13.1 % (13.4-35.0); Mean Corpuscular HGB Conc 33 % (30-34); Mean Corpuscular Volume 76 fl (79-97); Monocytes # (Auto) 0.1 K/mm3 (0.0-0.8); Monocytes % (Auto) 3.5 % (0.0-7.3); Platelet Count 194 K/mm3 (140-440); Red Blood Count 4.67 M/mm3 (3.65-5.03); Red Cell Distribution Width 16.5 % (13.2-15.2)
[2021-04-25] MEDS: FAMOTIDINE 20 MG TAB PO SCH ×4 (06:28→21:31)
[2021-04-25 06:41] LABS: Albumin 3.4 g/dL (3.9-5)
[2021-04-25] MEDS ORDERED: cefTRIAXone/NS 2 GM/100 ML 2 GM/100 ML BAG IV SCH (07:00)
[2021-04-25] MEDS ORDERED: AZITHROMYCIN/NS 500 MG/250 ML 500 MG/250 ML BAG IV SCH (07:00)
[2021-04-25] MEDS ORDERED: ENOXAPARIN 100 MG/1 ML INJ SUB-Q SCH (10:00)
--- NOTE | 2021-04-25 12:02 | Progress Note ---
Assessment and Plan Assessment and plan: 46-year-old female with past medical history of congestive heart failure was brought to the emergency room because patient complained of progressive shortness of breath associated with cough and fever for the last 10 days .she reports fever, cough, shortness of breath, diarrhea. Patient states she got t ested for Covid a couple days ago but has not yet received the results. Patient is unvaccinated. In the emergency room patient chest x-ray showed patchy bibasilar airspace opacities concerning for pneumonia. CXR with bilateral opacities concerning for Pneumonia ECHO: 50-55% EF 04/25: Reviewed records as noted above and discussed with cardiology team. Patient clinically improving. She understands her diagnosis of COVID-19 we will continue to monitor oxygen level. We will do oxygen home evaluation in a.m. as patient is on 3 L at bedtime and if stable will anticipate discharge in a.m. to complete her steroids for now continue remdesivir and dexamethasone. (1) Acute respiratory failure with hypoxia Current Visit: Yes Status: Acute Plan to address problem: Oxygen via nasal penetrator per minute DuoNeb by nebulizer every 4 hours. Albuterol via nebulizer every 4 hours as needed. Dexamethasone 6 mg IV daily. Rocephin 2 g IV daily and Zithromax 500 mg IV daily. We will do the blood cultu res sputum culture. Follow Covid PCR and Covid inflammatory marker. We also consult infectious disease evaluation (2) Suspected COVID-19 virus infection Current Visit: Yes Status: Acute Plan to address problem: Oxygen via nasal penetrator per minute DuoNeb by nebulizer every 4 hours. Albuterol via nebulizer every 4 hours as needed. Dexamethasone 6 mg IV daily. Rocephin 2 g IV daily and Zithromax 500 mg IV daily. We will do the blood cultures sputum culture. Follow Covid PCR and Covid inflammatory marker. We also consult infectious disease evaluation (3) Pneumonia Current Visit: Yes Status: Acute Plan to address problem: Rocephin 2 g IV daily and Zithromax 500 mg IV daily. We will do the blood cultures sputum culture. Follow Covid PCR and Covid inflammatory marker. We also consult infectious disease evaluation (4) Congestive heart failure Current Visit: Yes Status: Acute Plan to address problem: Stable we will continue the home medication. We will monitor the patient closely (5) Obesity Current Visit: Yes Status: Acute Plan to address problem: We counseled the patient regarding weight reduction and diet and exercise (6) DVT prophylaxis Current Visit: Yes Status: Acute Plan to address problem: Heparin 5000 units subcu every 8 hours for DVT prophylaxis. Pepcid 20 mg p.o. twice daily for GI prophylaxis. Patient is a full code History Interval history: Patient seen and examined this morning sitting up on 3 L of oxygen comfortable no acute distress or worsening distress noted. Hospitalist Physical - Physical exam Narrative exam: VITAL SIGNS: Reviewed. GENERAL: The patient appears normally developed, morbidly obese vital signs as documented. HEAD: No signs of head trauma. EYES: Pupils are equal. Extraocular motions intact. EARS: Hearing grossly intact. MOUTH: Oropharynx is normal. NECK: No adenopathy, no JVD. CHEST: Chest with diminished breath sounds bilaterally. No wheezes, rales, or rhonchi. CARDIAC: Regular rate and rhythm. S1 and S2, without murmurs, gallops, or rubs. VASCULAR: No Edema. Peripheral pulses normal and equal in all extremities. ABDOMEN: Soft, non tender and non distended. No rebound or guarding, and no masses palpated. Bowel Sounds normal. MUSCULOSKELETAL: Good range of motion of all major joints. Extremities without clubbing, cyanosis or edema. NEUROLOGIC EXAM: Alert and oriented x 3 No focal sensory or strength deficits. Speech normal. Follows commands. PSYCHIATRIC: Mood normal. SKIN: detail exam as documented in skin assessment - Constitutional Vitals: Temp Pulse Resp BP Pulse Ox 99.7 F H 92 H 34 H 139/92 95 04/24/21 19:00 04/25/21 06:00 04/25/21 06:16 04/25/21 09:45 04/25/21 09:53 General appearance: Present: no acute distress HEART Score - HEART Score Troponin: Troponin T < 0.010 ng/mL (0.00-0.029) 04/24/21 17:22 Results - Labs CBC & Chem 7: 04/25/21 05:38 04/25/21 05:38 Labs: Laboratory Last Values WBC 3.5 K/mm3 (4.5-11.0) L 04/25/21 05:38 RBC 4.67 M/mm3 (3.65-5.03) 04/25/21 05:38 Hgb 11.6 gm/dl (10.1-14.3) 04/25/21 05:38 Hct 35.3 % (30.3-42.9) 04/25/21 05:38 MCV 76 fl (79-97) L 04/25/21 05:38 MCH 25 pg (28-32) L 04/25/21 05:38 MCHC 33 % (30-34) 04/25/21 05:38 RDW 16.5 % (13.2-15.2) H 04/25/21 05:38 Plt Count 194 K/mm3 (140-440) 04/25/21 05:38 Lymph % (Auto) 13.1 % (13.4-35.0) L 04/25/21 05:38 [place] % (Auto) 3.5 % (0.0-7.3) 04/25/21 05:38 Eos % (Auto) 0.5 % (0.0-4.3) 04/25/21 05:38 Baso % (Auto) 0.7 % (0.0-1.8) 04/25/21 05:38 Lymph # (Auto) 0.5 K/mm3 (1.2-5.4) L 04/25/21 05:38 [place] # (Auto) 0.1 K/mm3 (0.0-0.8) 04/25/21 05:38 Eos # (Auto) 0.0 K/mm3 (0.0-0.4) 04/25/21 05:38 Baso # (Auto) 0.0 K/mm3 (0.0-0.1) 04/25/21 05:38 Seg Neutrophils % 82.2 % (40.0-70.0) H 04/25/21 05:38 Seg Neutrophils # 2.9 K/mm3 (1.8-7.7) 04/25/21 05:38 PT 13.1 Sec. (12.2-14.9) 04/23/21 19:40 INR 0.93 (0.87-1.13) 04/23/21 19:40 APTT 37.5 Sec. (24.2-36.6) H 04/23/21 19:40 D-Dimer 1250.51 ng/mlDDU (0-234) H 04/24/21 14:58 Sodium 136 mmol/L (137-145) L 04/25/21 05:38 Potassium 4.2 mmol/L (3.6-5.0) 04/25/21 05:38 Chloride 98.3 mmol/L (98-107) 04/25/21 05:38 Carbon Dioxide 23 mmol/L (22-30) 04/25/21 05:38 Anion Gap 19 mmol/L 04/25/21 05:38 BUN 23 mg/dL (7-17) H 04/25/21 05:38 Creatinine 1.2 mg/dL (0.6-1.2) 04/25/21 05:38 Estimated GFR 59 ml/min 04/25/21 05:38 BUN/Creatinine Ratio 19 % 04/25/21 05:38 Glucose 150 mg/dL (65-100) H 04/25/21 05:38 Lactic Acid 1.10 mmol/L (0.7-2.0) 04/23/21 23:24 Calcium 9.0 mg/dL (8.4-10.2) 04/25/21 05:38 Ferritin 164.2 ng/mL (10.0-200.0) 04/24/21 09:51 Total Bilirubin 0.20 mg/dL (0.1-1.2) 04/25/21 05:38 AST 122 units/L (5-40) H 04/25/21 05:38 ALT 36 units/L (7-56) 04/25/21 05:38 Alkaline Phosphatase 23 units/L (35-129) L 04/25/21 05:38 Lactate Dehydrogenase 605 units/L (91-180) H 04/24/21 09:51 Troponin T < 0.010 ng/mL (0.00-0.029) 04/24/21 17:22 C-Reactive Protein 6.20 mg/dL (0.00-1.30) H 04/24/21 09:51 NT-Pro-B Natriuret Pep < 5 pg/mL (0-450) 04/24/21 14:58 Total Protein 6.9 g/dL (6.3-8.2) 04/25/21 05:38 Albumin 3.4 g/dL (3.9-5) L 04/25/21 05:38 Albumin/Globulin Ratio 1.0 % 04/25/21 05:38 Procalcitonin 0.05 ng/mL (<0.15) 04/24/21 09:51 HCG, Qual Negative (Negative) 04/23/21 19:40 Coronavirus (PCR) Positive (Negative) A 04/24/21 Unknown Microbiology: Microbiology 04/23/21 19:34 Peripheral/Venous Blood Culture - Preliminary NO GROWTH AFTER 24 HOURS 04/23/21 19:34 Peripheral/Venous Blood Culture - Preliminary NO GROWTH AFTER 24 HOURS Active Medications - Current Medications Current Medications: Generic Name Dose Route Start Last Admin Trade Name Freq PRN Reason Stop Dose Admin Acetaminophen 650 mg 04/24/21 05:38 Acetaminophen 325 Mg Tab PO Q4H PRN Pain MILD(1-3)/Fever >100.5/DELCID Albuterol 2.5 mg 04/24/21 05:38 Albuterol 2.5 Mg/3 Ml Nebu IH Q4HRT PRN Shortness Of Breath Albuterol/Ipratropium 1 ampul 04/24/21 08:00 Ipratropium/Albuterol Sulfate 3 Ml Ampul.Neb IH Q6HRT [facility] Dexamethasone 8 mg 04/24/21 17:00 04/25/21 00:00 Dexamethasone 4 Mg/Ml Vial IV 05/04/21 16:59 8 mg DAILY [facility] Administration Enoxaparin Sodium 130 mg 04/25/21 10:00 Enoxaparin 150 Mg/1 Ml Inj SUB-Q Q12HR [facility] Famotidine 20 mg 04/24/21 10:00 04/25/21 06:28 Famotidine 20 Mg Tab PO Not Given BID [facility] Hydromorphone HCl 0.5 mg 04/24/21 05:38 Hydromorphone 1 Mg/1 Ml Inj IV Q3H PRN Pain , Severe (7-10) REMDESIVIR 100 mg/ Sodium 250 mls @ 500 mls/hr 04/25/21 21:00 Chloride IV 04/28/21 21:29 Q24HR@2100 [facility] Ondansetron HCl 4 mg 04/24/21 05:38 Ondansetron 4 Mg/2 Ml Inj IV Q8H PRN Nausea And Vomiting Oxycodone/Acetaminophen 1 tab 04/24/21 05:38 Oxycodone /Acetaminophen 5-325mg Tab PO Q6H PRN Pain, Moderate (4-6) Pseudoephedrine/Acetam/Chlorphenir 5 ml 04/24/21 05:40 Guaifenesin/Codeine 100-10mg Oral Liqd 5 Ml PO Q6H PRN Cough Sodium Chloride 10 ml 04/24/21 10:00 04/24/21 22:14 Sodium Chloride 0.9% 10 Ml Flush Syringe IV 10 ml BID [facility] Administration Sodium Chloride 10 ml 04/24/21 05:38 Sodium Chloride 0.9% 10 Ml Flush Syringe IV PRN PRN LINE FLUSH Sodium Chloride 50 ml 04/24/21 17:00 04/25/21 00:00 Sodium Chloride 0.9% 50 Ml Ivpb IV 04/27/21 21:01 50 ml Q24HR@2100 [facility] Administration
--- NOTE | 2021-04-25 12:04 | Progress Note ---
Assessment and Plan Chest pain H/o CHF * Pain worse with coughing and palpation * EKG shows sinus tach 123 with no acute ischemic changes. Patient not currently on monitor. Troponins neg x2. AMI rulled out * Echo 04/24/2021-EF 50 to 55%, right ventricle systolic function is normal, left and right atrium are normal in size hypertensive heart disease, normal echocardiogram. * BNP<5 * Patient appears euvolimic, and has normal echo Acute hypoxic respiratory failure PNA Suspected COVID-19 * Patient reports not being vaccinated and testing positive for COVID-19 * ID consulted * Management per primary team Patient has normal echo, negative BNP, negative trops, and no acute ischemic changes on EKG. Patient is stable from a cardiac standpoint Patient may follow up with Dr. Shelby, [facility], 1-2weeks after discharge. Patient seen in conjunction with Dr. Shelby who agrees with this plan. Will see as needed - Patient Problems (1) Acute respiratory failure with hypoxia Current Visit: Yes Status: Acute (2) Congestive heart failure Current Visit: Yes Status: Acute (3) Obesity Current Visit: Yes Status: Acute (4) Pneumonia Current Visit: Yes Status: Acute (5) Suspected COVID-19 virus infection Current Visit: Yes Status: Acute Subjective Date of service: 04/25/21 Principal diagnosis: COVID-19 Interval history: Patient resting in bed. Reports feeling slightly better. Patient not on monitor Objective Last Vital Signs Temp 99.7 F H 04/24/21 19:00 Pulse 92 H 04/25/21 06:00 Resp 34 H 04/25/21 06:16 BP 139/92 04/25/21 09:45 Pulse Ox 95 04/25/21 09:53 - Physical Examination General: No Apparent Distress HEENT: Positive: PERRL Neck: Positive: neck supple, trachea midline Cardiac: Positive: Reg Rate and Rhythm Lungs: Positive: Decreased Breath Sounds Neuro: Positive: Grossly Intact Abdomen: Positive: Soft, Active Bowel Sounds Skin: Negative: Rash, Suspicious Lesions, Ulceration Extremities: Present: upper extr. pulses, lower extr. pulses, edema - Labs and Meds Cardiac Enzymes 04/24/21 04/25/21 Range/Units 17:22 05:38 AST 118 H 122 H (5-40) units/L CBC 04/25/21 Range/Units 05:38 WBC 3.5 L (4.5-11.0) K/mm3 RBC 4.67 (3.65-5.03) M/mm3 Hgb 11.6 (10.1-14.3) gm/dl Hct 35.3 (30.3-42.9) % Plt Count 194 (140-440) K/mm3 Lymph # (Auto) 0.5 L (1.2-5.4) K/mm3 [place] # (Auto) 0.1 (0.0-0.8) K/mm3 Eos # (Auto) 0.0 (0.0-0.4) K/mm3 Baso # (Auto) 0.0 (0.0-0.1) K/mm3 Comprehensive Metabolic Panel 04/24/21 04/25/21 Range/Units 17:22 05:38 Sodium 131 L 136 L (137-145) mmol/L Potassium 3.9 4.2 (3.6-5.0) mmol/L Chloride 94.3 L 98.3 (98-107) mmol/L Carbon Dioxide 21 L 23 (22-30) mmol/L BUN 21 H 23 H (7-17) mg/dL Creatinine 1.3 H 1.2 (0.6-1.2) mg/dL Glucose 104 H 150 H (65-100) mg/dL Calcium 8.7 9.0 (8.4-10.2) mg/dL AST 118 H 122 H (5-40) units/L ALT 32 36 (7-56) units/L Alkaline Phosphatase 22 L 23 L (35-129) units/L Total Protein 6.9 6.9 (6.3-8.2) g/dL Albumin 3.2 L 3.4 L (3.9-5) g/dL - Imaging and Cardiology EKG: report reviewed Echo: report reviewed - Telemetry EKG Rhythm: Sinus Tachycardia - EKG Sinus rhythms and dysrhythmias: sinus tachycardia
[2021-04-25] MEDS: dexAMETHasone 4 MG/ML VIAL IV SCH ×2 (13:02)
[2021-04-25] MEDS: ENOXAPARIN 150 MG/1 ML INJ SUB-Q SCH ×2 (13:02→21:31)
--- NOTE | 2021-04-25 13:04 | Progress Note ---
Assessment and Plan 46-year-old female with past medical history of congestive heart failure was brought to the emergency room because patient complained of progressive shortness of breath associated with cough and fever for the last 10 days .she reports fever, cough, shortness of breath, diarrhea. Patient states she got tested for Covid a couple days ago but has not yet received the results. Patient is unvaccinated. Patient sleeping on 4 litres O2. O2 saturation 100%. No acute respiratory distress. Patient running low grade temp. No leukocytosis. Chest xray 04/23/21 reported Patchy bibasilar airspace opacities, concerning for pneumonia. Patient is on Dexamethasone, Remdesivir, therapeutic dose of lovenox, famotidine. - Patient Problems (1) Acute respiratory failure with hypoxia Current Visit: Yes Status: Acute Plan to address problem: 4 litres O2. Continue dexamethasone. Continue Lovenox. (2) Coronavirus infection Current Visit: Yes Status: Acute Plan to address problem: Patient is on dexamethasone and REMDESIVIR Management as per infectious diseases. (3) Pneumonia due to COVID-19 virus Current Visit: Yes Status: Acute Plan to address problem: Antibiotic management as per infectious diseases. (4) Congestive heart failure Current Visit: Yes Status: Acute Plan to address problem: Management as per cardiology. (5) Obesity Current Visit: Yes Status: Acute Plan to address problem: Recommend to loose weight. Subjective Date of service: 04/25/21 Principal diagnosis: COVID-19 Interval history: 46-year-old female with past medical history of congestive heart failure was brought to the emergency room because patient complained of progressive joseph rtness of breath associated with cough and fever for the last 10 days .she reports fever, cough, shortness of breath, diarrhea. Patient states she got tested for Covid a couple days ago but has not yet received the results. Patient is unvaccinated. Patient sleeping on 4 litres O2. O2 saturation 100%. No acute respiratory distress. Patient running low grade temp. No leukocytosis. Chest xray 04/23/21 reported Patchy bibasilar airspace opacities, concerning for pneumonia. Patient is on Dexamethasone, Remdesivir, therapeutic dose of lovenox, famotidine. Objective Vital Signs - 12hr 04/25/21 04/25/21 04/25/21 02:00 02:36 02:46 Pulse Rate 88 90 Respiratory 40 H 26 H Rate Blood Pressure Blood Pressure [Right] O2 Sat by Pulse 96 100 100 Oximetry 04/25/21 04/25/21 04/25/21 03:00 03:16 03:30 Pulse Rate 90 90 77 Respiratory 54 H 32 H 31 H Rate Blood Pressure Blood Pressure [Right] O2 Sat by Pulse 100 100 100 Oximetry 04/25/21 04/25/21 04/25/21 03:46 04:00 04:16 Pulse Rate 86 98 H 87 Respiratory 29 H 26 H 30 H Rate Blood Pressure Blood Pressure 119/64 [Right] O2 Sat by Pulse 100 100 100 Oximetry 04/25/21 04/25/21 04/25/21 04:30 04:46 05:00 Pulse Rate 85 81 74 Respiratory 29 H 27 H 29 H Rate Blood Pressure Blood Pressure [Right] O2 Sat by Pulse 100 100 98 Oximetry 04/25/21 04/25/21 04/25/21 05:16 05:30 05:46 Pulse Rate 84 82 71 Respiratory 31 H 30 H 34 H Rate Blood Pressure Blood Pressure [Right] O2 Sat by Pulse 89 91 93 Oximetry 04/25/21 04/25/21 04/25/21 06:00 06:16 06:30 Pulse Rate 92 H Respiratory 30 H 34 H Rate Blood Pressure Blood Pressure [Right] O2 Sat by Pulse 86 96 97 Oximetry 04/25/21 04/25/21 04/25/21 06:45 07:01 07:15 Pulse Rate Respiratory Rate Blood Pressure Blood Pressure [Right] O2 Sat by Pulse 95 95 96 Oximetry 04/25/21 04/25/21 04/25/21 07:31 07:45 08:01 Pulse Rate Respiratory Rate Blood Pressure Blood Pressure [Right] O2 Sat by Pulse 98 99 99 Oximetry 04/25/21 04/25/21 04/25/21 08:15 08:30 09:01 Pulse Rate Respiratory Rate Blood Pressure 135/100 135/100 135/100 Blood Pressure [Right] O2 Sat by Pulse 98 98 95 Oximetry 04/25/21 04/25/21 04/25/21 09:07 09:31 09:45 Pulse Rate Respiratory Rate Blood Pressure 139/92 139/92 Blood Pressure [Right] O2 Sat by Pulse 95 98 95 Oximetry 04/25/21 04/25/21 04/25/21 09:53 10:01 10:15 Pulse Rate Respiratory Rate Blood Pressure 139/92 118/65 Blood Pressure [Right] O2 Sat by Pulse 95 98 100 Oximetry 04/25/21 04/25/21 04/25/21 10:31 10:45 11:01 Pulse Rate Respiratory Rate Blood Pressure 118/65 118/65 118/65 Blood Pressure [Right] O2 Sat by Pulse 99 98 100 Oximetry 04/25/21 04/25/21 04/25/21 11:45 12:01 12:10 Pulse Rate Respiratory Rate Blood Pressure 118/65 118/65 Blood Pressure [Right] O2 Sat by Pulse 97 96 96 Oximetry Constitutional: no acute distress, asleep Eyes: non-icteric ENT: oropharynx moist Neck: supple, no lymphadenopathy Effort: mildly labored Ascultation: Bilateral: diminished breath sounds, rhonchi Cardiovascular: regular rate and rhythm Gastrointestinal: normoactive bowel sounds, soft, non-tender Integumentary: normal Extremities: no cyanosis, no edema Neurologic: non-focal exam, pupils equal and round Psychiatric: other (Patient sleeping.) CBC and BMP: 04/25/21 05:38 04/26/21 07:12 ABG, PT/INR, D-dimer: PT/INR, D-dimer PT 13.1 Sec. (12.2-14.9) 04/23/21 19:40 INR 0.93 (0.87-1.13) 04/23/21 19:40 D-Dimer 1250.51 ng/mlDDU (0-234) H 04/24/21 14:58 Abnormal lab findings: Abnormal Labs 04/23/21 04/23/21 04/23/21 19:34 19:40 19:40 WBC MCV 77 L MCH 25 L RDW 16.1 H Lymph % (Auto) Lymph # (Auto) 0.7 L Seg Neutrophils % 77.6 H APTT 37.5 H D-Dimer Sodium 132 L Chloride 95.9 L Carbon Dioxide 21 L BUN Creatinine 1.3 H Glucose AST 88 H Alkaline Phosphatase 25 L Lactate Dehydrogenase C-Reactive Protein Albumin 3.5 L Coronavirus (PCR) 04/24/21 04/24/21 04/24/21 09:51 14:58 17:22 WBC MCV MCH RDW Lymph % (Auto) Lymph # (Auto) Seg Neutrophils % APTT D-Dimer 1250.51 H Sodium 131 L Chloride 94.3 L Carbon Dioxide 21 L BUN 21 H Creatinine 1.3 H Glucose 102 H 104 H AST 118 H Alkaline Phosphatase 22 L Lactate Dehydrogenase 605 H C-Reactive Protein 6.20 H Albumin 3.2 L Coronavirus (PCR) 04/24/21 04/25/21 04/25/21 Unknown 05:38 05:38 WBC 3.5 L MCV 76 L MCH 25 L RDW 16.5 H Lymph % (Auto) 13.1 L Lymph # (Auto) 0.5 L Seg Neutrophils % 82.2 H APTT D-Dimer Sodium 136 L Chloride Carbon Dioxide BUN 23 H Creatinine Glucose 150 H AST 122 H Alkaline Phosphatase 23 L Lactate Dehydrogenase C-Reactive Protein Albumin 3.4 L Coronavirus (PCR) Positive A Chest x-ray: report reviewed, image reviewed Additional Studies: XR chest routine 2V 04/23/21 INDICATION / CLINICAL INFORMATION: Chest Pain. COMPARISON: None available. FINDINGS: Findings in the chest are accentuated by body habitus and phase of inspiration. SUPPORT DEVICES: None. HEART /PULMONARY VASCULATURE: No significant abnormality. LUNGS / PLEURA: Patchy bibasilar airspace opacities are present. No pneumothorax. ADDITIONAL FINDINGS: No significant additional findings. IMPRESSION: Patchy bibasilar airspace opacities, concerning for pneumonia.
[2021-04-25] MEDS: SODIUM CHLORIDE 0.9% 50 ML IVPB IV SCH ×3 (13:50→21:31)
[2021-04-25] MEDS: IPRATROPIUM/ALBUTEROL SULFATE 3 ML AMPUL.NEB IH SCH ×4 (13:53→14:16)
--- NOTE | 2021-04-25 15:23 | Progress Note ---
Assessment and Plan Cultures: SARS CoV2 PCR: Positive Blood culture: oo growth A/P: 46-year-old female with CHF: #Bilateral pneumonia: Secondary to COVID-19 #Acute hypoxic respiratory failure: Secondary to COVID-19. #CHF: cardiology on board. #Morbid obesity #Leukopenia: Likely secondary to COVID-19 Recs: IV/PO Dexamethasone 8 mg daily x 10 days, higher dose due to morbid obesity Remdesivir x 5 days prophylactic anticoagulation based on d-dimer per hospital protocol trend ferritin, LDH, d-dimer, CRP every 2-3 days for risk stratification and to assess disease progression Roselyn Lundy MD, FACP [facility] ([facility] O: [phone] F: [phone] Subjective Date of service: 04/25/21 Principal diagnosis: COVID-19 Interval history: Low-grade fever. Remains hypoxic on 4 L nasal cannula. WBC 3.5. Objective - Exam Narrative Exam: Physical Exam (reviewed in chart to minimize risk of transmission) Constitutional: deferred Head, Ears, Nose: deferred Eyes: deferred Neck: deferred Oral: deferred Cardiovascular: deferred Respiratory: deferred GI: deferred Musculoskeletal: deferred Skin: deferred Hem/Lymphatic: deferred Psych: deferred Neurological: deferred - Constitutional Vitals: Vital Signs Temp Pulse Resp BP Pulse Ox 99.7 F H 92 H 34 H 118/65 98 04/24/21 19:00 04/25/21 06:00 04/25/21 06:16 04/25/21 13:30 04/25/21 14:25 Temperature -Last 24 Hours Temperature 99.7 F - Labs CBC & Chem 7: 04/25/21 05:38 04/25/21 05:38 Labs: Abnormal lab results 04/24/21 04/24/21 04/25/21 Range/Units 14:58 17:22 05:38 WBC 3.5 L (4.5-11.0) K/mm3 MCV 76 L (79-97) fl MCH 25 L (28-32) pg RDW 16.5 H (13.2-15.2) % Lymph % (Auto) 13.1 L (13.4-35.0) % Lymph # (Auto) 0.5 L (1.2-5.4) K/mm3 Seg Neutrophils % 82.2 H (40.0-70.0) % D-Dimer 1250.51 H (0-234) ng/mlDDU Sodium 131 L (137-145) mmol/L Chloride 94.3 L (98-107) mmol/L Carbon Dioxide 21 L (22-30) mmol/L BUN 21 H (7-17) mg/dL Creatinine 1.3 H (0.6-1.2) mg/dL Glucose 104 H (65-100) mg/dL AST 118 H (5-40) units/L Alkaline Phosphatase 22 L (35-129) units/L Albumin 3.2 L (3.9-5) g/dL 04/25/21 Range/Units 05:38 WBC (4.5-11.0) K/mm3 MCV (79-97) fl MCH (28-32) pg RDW (13.2-15.2) % Lymph % (Auto) (13.4-35.0) % Lymph # (Auto) (1.2-5.4) K/mm3 Seg Neutrophils % (40.0-70.0) % D-Dimer (0-234) ng/mlDDU Sodium 136 L (137-145) mmol/L Chloride (98-107) mmol/L Carbon Dioxide (22-30) mmol/L BUN 23 H (7-17) mg/dL Creatinine (0.6-1.2) mg/dL Glucose 150 H (65-100) mg/dL AST 122 H (5-40) units/L Alkaline Phosphatase 23 L (35-129) units/L Albumin 3.4 L (3.9-5) g/dL
[2021-04-25] MEDS: REMDESIVIR 100 MG in SODIUM CHLORIDE 0.9% 250ML 250 ML IV SCH (21:31)
[2021-04-26] MEDS: IPRATROPIUM/ALBUTEROL SULFATE 3 ML AMPUL.NEB IH SCH ×3 (01:37→21:00)
[2021-04-26] MEDS ORDERED: ALBUTEROL 8.5 GM MDI INHALATION IH PRN (08:07)
[2021-04-26 09:31] LABS: Alanine Aminotransferase 42 units/L (7-56); Albumin 3.4 g/dL (3.9-5); BUN/Creatinine Ratio 24; Blood Urea Nitrogen 24 mg/dL (7-17); Calcium 8.3 mg/dL (8.4-10.2); Hemolysis Index 0
--- NOTE | 2021-04-26 09:31 | Progress Note ---
Assessment and Plan Assessment and plan: 46-year-old female with past medical history of congestive heart failure was brought to the emergency room because patient complained of progressive shortness of breath associated with cough and fever for the last 10 days .she reports fever, cough, shortness of breath, diarrhea. Patient states she got t ested for Covid a couple days ago but has not yet received the results. Patient is unvaccinated. In the emergency room patient chest x-ray showed patchy bibasilar airspace opacities concerning for pneumonia. CXR with bilateral opacities concerning for Pneumonia ECHO: 50-55% EF 04/25: Reviewed records as noted above and discussed with cardiology team. Patient clinically improving. She understands her diagnosis of COVID-19 we will continue to monitor oxygen level. We will do oxygen home evaluation in a.m. as patient is on 3 L at bedtime and if stable will anticipate discharge in a.m. to complete her steroids for now continue remdesivir and dexamethasone. 04/26: Patient reports dizziness every time she is off her oxygen. A home O2 evaluation was done early hours of this morning the patient was satting 90%. I do not know how long she ambulated for. She is very anxious this morning about the prospect of being discharged and wanted to stay in the hospital 2 more days. I told Kirk reevaluate her in the next 24 hours and see how she does. She understands management outpatient. Also discussed the importance of activity as she is at high risk for VTE's she verbalized understanding. We will repeat home O2 evaluation in the next 24 hours for discharge. We will also check orthos tatic vitals at this time. Patient is at high risk due to her severe morbid obesity she understands the importance of losing weight (1) Acute respiratory failure with hypoxia Current Visit: Yes Status: Acute Plan to address problem: Oxygen via nasal penetrator per minute DuoNeb by nebulizer every 4 hours. Albuterol via nebulizer every 4 hours as needed. Dexamethasone 6 mg IV daily. Rocephin 2 g IV daily and Zithromax 500 mg IV daily. We will do the blood cultures sputum culture. Follow Covid PCR and Covid inflammatory marker. We also consult infectious disease evaluation (2) COVID-19 virus infection Current Visit: Yes Status: Acute Plan to address problem: Oxygen via nasal penetrator per minute DuoNeb by nebulizer every 4 hours. Albuterol via nebulizer every 4 hours as needed. Dexamethasone 6 mg IV daily. Rocephin 2 g IV daily and Zithromax 500 mg IV daily. We will do the blood cultu res sputum culture. Follow Covid PCR and Covid inflammatory marker. We also consult infectious disease evaluation (3) Pneumonia Current Visit: Yes Status: Acute Plan to address problem: Rocephin 2 g IV daily and Zithromax 500 mg IV daily. We will do the blood cultures sputum culture. Follow Covid PCR and Covid inflammatory marker. We also consult infectious disease evaluation (4) Congestive heart failure Current Visit: Yes Status: Acute Plan to address problem: Stable we will continue the home medication. We will monitor the patient closely (5) Obesity Current Visit: Yes Status: Acute Plan to address problem: We counseled the patient regarding weight reduction and diet and exercise (6) DVT prophylaxis Current Visit: Yes Status: Acute Plan to address problem: Heparin 5000 units subcu every 8 hours for DVT prophylaxis. Pepcid 20 mg p.o. twice daily for GI prophylaxis. Patient is a full code History Interval history: Patient seen and examined this morning sitting up on 2 L of oxygen while she appeared comfortable she tells me that every exertion is with great difficulty with breathing. She also appeared a little anxious when we talked about dischar ge home. Hospitalist Physical - Physical exam Narrative exam: VITAL SIGNS: Reviewed. GENERAL: The patient appears normally developed, morbidly obese vital signs as documented. HEAD: No signs of head trauma. EYES: Pupils are equal. Extraocular motions intact. EARS: Hearing grossly intact. MOUTH: Oropharynx is normal. NECK: No adenopathy, no JVD. CHEST: Chest with diminished breath sounds bilaterally. No wheezes, rales, or rhonchi. CARDIAC: Regular rate and rhythm. S1 and S2, without murmurs, gallops, or r ubs. VASCULAR: No Edema. Peripheral pulses normal and equal in all extremities. ABDOMEN: Soft, non tender and non distended. No rebound or guarding, and no masses palpated. Bowel Sounds normal. MUSCULOSKELETAL: Good range of motion of all major joints. Extremities without clubbing, cyanosis or edema. NEUROLOGIC EXAM: Alert and oriented x 3 No focal sensory or strength deficits. Speech normal. Follows commands. PSYCHIATRIC: Mood normal. SKIN: detail exam as documented in skin assessment - Constitutional Vitals: Temp Pulse Resp BP Pulse Ox 98.2 F 66 20 145/84 100 04/26/21 05:25 04/26/21 05:25 04/26/21 05:25 04/26/21 05:25 04/26/21 05:25 General appearance: Present: no acute distress HEART Score - HEART Score Troponin: Troponin T < 0.010 ng/mL (0.00-0.029) 04/24/21 17:22 Results - Labs CBC & Chem 7: 04/25/21 05:38 04/25/21 05:38 Labs: Laboratory Last Values WBC 3.5 K/mm3 (4.5-11.0) L 04/25/21 05:38 RBC 4.67 M/mm3 (3.65-5.03) 04/25/21 05:38 Hgb 11.6 gm/dl (10.1-14.3) 04/25/21 05:38 Hct 35.3 % (30.3-42.9) 04/25/21 05:38 MCV 76 fl (79-97) L 04/25/21 05:38 MCH 25 pg (28-32) L 04/25/21 05:38 MCHC 33 % (30-34) 04/25/21 05:38 RDW 16.5 % (13.2-15.2) H 04/25/21 05:38 Plt Count 194 K/mm3 (140-440) 04/25/21 05:38 Lymph % (Auto) 13.1 % (13.4-35.0) L 04/25/21 05:38 [place] % (Auto) 3.5 % (0.0-7.3) 04/25/21 05:38 Eos % (Auto) 0.5 % (0.0-4.3) 04/25/21 05:38 Baso % (Auto) 0.7 % (0.0-1.8) 04/25/21 05:38 Lymph # (Auto) 0.5 K/mm3 (1.2-5.4) L 04/25/21 05:38 [place] # (Auto) 0.1 K/mm3 (0.0-0.8) 04/25/21 05:38 Eos # (Auto) 0.0 K/mm3 (0.0-0.4) 04/25/21 05:38 Baso # (Auto) 0.0 K/mm3 (0.0-0.1) 04/25/21 05:38 Seg Neutrophils % 82.2 % (40.0-70.0) H 04/25/21 05:38 Seg Neutrophils # 2.9 K/mm3 (1.8-7.7) 04/25/21 05:38 PT 13.1 Sec. (12.2-14.9) 04/23/21 19:40 INR 0.93 (0.87-1.13) 04/23/21 19:40 APTT 37.5 Sec. (24.2-36.6) H 04/23/21 19:40 D-Dimer 1250.51 ng/mlDDU (0-234) H 04/24/21 14:58 Sodium 136 mmol/L (137-145) L 04/25/21 05:38 Potassium 4.2 mmol/L (3.6-5.0) 04/25/21 05:38 Chloride 98.3 mmol/L (98-107) 04/25/21 05:38 Carbon Dioxide 23 mmol/L (22-30) 04/25/21 05:38 Anion Gap 19 mmol/L 04/25/21 05:38 BUN 23 mg/dL (7-17) H 04/25/21 05:38 Creatinine 1.2 mg/dL (0.6-1.2) 04/25/21 05:38 Estimated GFR 59 ml/min 04/25/21 05:38 BUN/Creatinine Ratio 19 % 04/25/21 05:38 Glucose 150 mg/dL (65-100) H 04/25/21 05:38 Lactic Acid 1.10 mmol/L (0.7-2.0) 04/23/21 23:24 Calcium 9.0 mg/dL (8.4-10.2) 04/25/21 05:38 Ferritin 164.2 ng/mL (10.0-200.0) 04/24/21 09:51 Total Bilirubin 0.20 mg/dL (0.1-1.2) 04/25/21 05:38 AST 122 units/L (5-40) H 04/25/21 05:38 ALT 36 units/L (7-56) 04/25/21 05:38 Alkaline Phosphatase 23 units/L (35-129) L 04/25/21 05:38 Lactate Dehydrogenase 605 units/L (91-180) H 04/24/21 09:51 Troponin T < 0.010 ng/mL (0.00-0.029) 04/24/21 17:22 C-Reactive Protein 6.20 mg/dL (0.00-1.30) H 04/24/21 09:51 NT-Pro-B Natriuret Pep < 5 pg/mL (0-450) 04/24/21 14:58 Total Protein 6.9 g/dL (6.3-8.2) 04/25/21 05:38 Albumin 3.4 g/dL (3.9-5) L 04/25/21 05:38 Albumin/Globulin Ratio 1.0 % 04/25/21 05:38 Procalcitonin 0.05 ng/mL (<0.15) 04/24/21 09:51 HCG, Qual Negative (Negative) 04/23/21 19:40 Coronavirus (PCR) Positive (Negative) A 04/24/21 Unknown Microbiology: Microbiology 04/23/21 19:34 Peripheral/Venous Blood Culture - Preliminary NO GROWTH AFTER 48 HOURS 04/23/21 19:34 Peripheral/Venous Blood Culture - Preliminary NO GROWTH AFTER 48 HOURS Bourgeois/IV: Voiding Method Toilet Active Medications - Current Medications Current Medications: Generic Name Dose Route Start Last Admin Trade Name Freq PRN Reason Stop Dose Admin Acetaminophen 650 mg 04/24/21 05:38 Acetaminophen 325 Mg Tab PO Q4H PRN Pain MILD(1-3)/Fever >100.5/DELCID Albuterol 2 puff 04/26/21 08:07 Albuterol 8.5 Gm Mdi Inhalation IH Q6HRT PRN Shortness Of Breath Dexamethasone 8 mg 04/24/21 17:00 04/25/21 13:02 Dexamethasone 4 Mg/Ml Vial IV 05/04/21 16:59 8 mg DAILY CHEPE Administration Enoxaparin Sodium 130 mg 04/25/21 10:00 04/25/21 21:31 Enoxaparin 150 Mg/1 Ml Inj SUB-Q 130 mg Q12HR CHEPE Administration Famotidine 20 mg 04/24/21 10:00 04/25/21 21:31 Famotidine 20 Mg Tab PO 20 mg BID CHEPE Administration Hydromorphone HCl 0.5 mg 04/24/21 05:38 Hydromorphone 1 Mg/1 Ml Inj IV Q3H PRN Pain , Severe (7-10) REMDESIVIR 100 mg/ Sodium 250 mls @ 500 mls/hr 04/25/21 21:00 04/25/21 21:31 Chloride IV 04/28/21 21:29 500 mls/hr Q24HR@2100 CHEPE Administration Ondansetron HCl 4 mg 04/24/21 05:38 Ondansetron 4 Mg/2 Ml Inj IV Q8H PRN Nausea And Vomiting Oxycodone/Acetaminophen 1 tab 04/24/21 05:38 Oxycodone /Acetaminophen 5-325mg Tab PO Q6H PRN Pain, Moderate (4-6) Pseudoephedrine/Acetam/Chlorphenir 5 ml 04/24/21 05:40 04/25/21 23:36 Guaifenesin/Codeine 100-10mg Oral Liqd 5 Ml PO 5 ml Q6H PRN Administration Cough Sodium Chloride 10 ml 04/24/21 10:00 04/25/21 23:37 Sodium Chloride 0.9% 10 Ml Flush Syringe IV 10 ml BID CHEPE Administration Sodium Chloride 10 ml 04/24/21 05:38 Sodium Chloride 0.9% 10 Ml Flush Syringe IV PRN PRN LINE FLUSH Sodium Chloride 50 ml 04/24/21 17:00 04/25/21 21:31 Sodium Chloride 0.9% 50 Ml Ivpb IV 04/27/21 21:01 50 ml Q24HR@2100 CHEPE Administration
[2021-04-26] MEDS: ENOXAPARIN 150 MG/1 ML INJ SUB-Q SCH ×2 (11:39→22:19)
[2021-04-26] MEDS: dexAMETHasone 4 MG/ML VIAL IV SCH (11:39)
[2021-04-26] MEDS: FAMOTIDINE 20 MG TAB PO SCH ×2 (11:40→22:18)
--- NOTE | 2021-04-26 13:49 | Progress Note ---
Assessment and Plan Cultures: SARS CoV2 PCR: Positive Blood culture: no growth A/P: 46-year-old female with CHF: #Bilateral pneumonia: Secondary to COVID-19 #Acute hypoxic respiratory failure: Secondary to COVID-19. #CHF: cardiology on board. #Morbid obesity #Leukopenia: Likely secondary to COVID-19 Recs: IV/PO Dexamethasone 8 mg daily x 10 days, higher dose due to morbid obesity continue Remdesivir while she is inpatient prophylactic anticoagulation based on d-dimer per hospital protocol Rechecking markers in a.m.: D-dimer, CRP Discharge planning Roselyn Lundy MD, FACP [facility] O: [phone] F: [phone] Subjective Date of service: 04/26/21 Principal diagnosis: COVID-19 Interval history: No fever. On oxygen by nasal cannula at 2 L/min. Objective - Exam Narrative Exam: Physical Exam (reviewed in chart to minimize risk of transmission) Constitutional: deferred Head, Ears, Nose: deferred Eyes: deferred Neck: deferred Oral: deferred Cardiovascular: deferred Respiratory: deferred GI: deferred Musculoskeletal: deferred Skin: deferred Hem/Lymphatic: deferred Psych: deferred Neurological: deferred - Constitutional Vitals: Vital Signs Temp Pulse Resp BP Pulse Ox 98.2 F 66 20 145/84 94 04/26/21 05:25 04/26/21 05:25 04/26/21 05:25 04/26/21 05:25 04/26/21 10:00 Temperature -Last 24 Hours Temperature 98.2 F Temperature 98.4 F - Labs CBC & Chem 7: 04/25/21 05:38 04/26/21 07:12 Labs: Abnormal lab results 04/26/21 Range/Units 07:12 BUN 24 H (7-17) mg/dL Glucose 114 H (65-100) mg/dL Calcium 8.3 L (8.4-10.2) mg/dL AST 97 H (5-40) units/L Alkaline Phosphatase 25 L (35-129) units/L Albumin 3.4 L (3.9-5) g/dL
--- NOTE | 2021-04-26 19:27 | Progress Note ---
Assessment and Plan 46-year-old female morbidly obese with past medical history of congestive heart failure was brought to the emergency room because patient complained of progressive shortness of breath associated with cough and fever for the last 10 days .she reports fever, cough, shortness of breath, diarrhea. Patient states she got tested for Covid a couple days ago but has not yet received the results. Patient is unvaccinated. Patient is alert, awake, on 2 litres O2. O2 saturation 98%. No acute respiratory distress. Denies chest pain and shortness of breath except for nonproductive cough. Patient afebrile. No leukocytosis. WBC: 3.5 COVID positive Chest xray 04/23/21 reported Patchy bibasilar airspace opacities, concerning for pneumonia. Patient is on Dexamethasone, Remdesivir, Proair, Enoxaparin, Pepcid, and Robitussin. - Patient Problems (1) Acute respiratory failure with hypoxia Current Visit: Yes Status: Acute Plan to address problem: 2 litres O2. Continue dexamethasone. Continue Enoxaparin. (2) Coronavirus infection Current Visit: Yes Status: Acute Plan to address problem: Patient is on dexamethasone and REMDESIVIR Management as per infectious diseases. (3) Pneumonia due to COVID-19 virus Current Visit: Yes Status: Acute Plan to address problem: Antibiotic management as per infectious diseases. (4) Congestive heart failure Current Visit: Yes Status: Acute Plan to address problem: Management as per cardiology. (5) Obesity Current Visit: Yes Status: Acute Plan to address problem: Recommend to lose weight. Subjective Date of service: 04/26/21 Principal diagnosis: COVID-19 Interval history: 46-year-old female morbidly obese with past medical history of congestive heart failure was brought to the emergency room because patient complained of progressive shortness of breath associated with cough and fever for the last 10 days .she reports fever, cough, shortness of breath, diarrhea. Patient states she got tested for Covid a couple days ago but has not yet received the results. Patient is unvaccinated. Patient is alert, awake, on 2 litres O2. O2 saturation 98%. No acute respiratory distress. Denies chest pain and shortness of breath except for nonproductive cough. Patient afebrile. No leukocytosis. WBC: 3.5 COVID positive Chest xray 04/23/21 reported Patchy bibasilar airspace opacities, concerning for pneumonia. Patient is on Dexamethasone, Remdesivir, Proair, Enoxaparin, Pepcid, and Robitussin. Objective Vital Signs - 12hr 04/26/21 04/26/21 10:00 17:15 Temperature 98.3 F Pulse Rate 64 Respiratory 24 Rate Blood Pressure 127/85 O2 Sat by Pulse 94 95 Oximetry Constitutional: no acute distress, alert Eyes: non-icteric ENT: oropharynx moist Neck: supple, no lymphadenopathy Effort: mildly labored Ascultation: Bilateral: diminished breath sounds, rhonchi Cardiovascular: regular rate and rhythm Gastrointestinal: normoactive bowel sounds, soft, non-tender Integumentary: normal Extremities: no cyanosis, no edema Neurologic: non-focal exam, pupils equal and round Psychiatric: mood appropriate CBC and BMP: 04/25/21 05:38 04/27/21 05:55 ABG, PT/INR, D-dimer: PT/INR, D-dimer PT 13.1 Sec. (12.2-14.9) 04/23/21 19:40 INR 0.93 (0.87-1.13) 04/23/21 19:40 D-Dimer 1250.51 ng/mlDDU (0-234) H 04/24/21 14:58 Abnormal lab findings: Abnormal Labs 04/23/21 04/23/21 04/23/21 19:34 19:40 19:40 WBC MCV 77 L MCH 25 L RDW 16.1 H Lymph % (Auto) Lymph # (Auto) 0.7 L Seg Neutrophils % 77.6 H APTT 37.5 H D-Dimer Sodium 132 L Chloride 95.9 L Carbon Dioxide 21 L BUN Creatinine 1.3 H Glucose Calcium AST 88 H Alkaline Phosphatase 25 L Lactate Dehydrogenase C-Reactive Protein Albumin 3.5 L Coronavirus (PCR) 04/24/21 04/24/21 04/24/21 09:51 14:58 17:22 WBC MCV MCH RDW Lymph % (Auto) Lymph # (Auto) Seg Neutrophils % APTT D-Dimer 1250.51 H Sodium 131 L Chloride 94.3 L Carbon Dioxide 21 L BUN 21 H Creatinine 1.3 H Glucose 102 H 104 H Calcium AST 118 H Alkaline Phosphatase 22 L Lactate Dehydrogenase 605 H C-Reactive Protein 6.20 H Albumin 3.2 L Coronavirus (PCR) 04/24/21 04/25/21 04/25/21 Unknown 05:38 05:38 WBC 3.5 L MCV 76 L MCH 25 L RDW 16.5 H Lymph % (Auto) 13.1 L Lymph # (Auto) 0.5 L Seg Neutrophils % 82.2 H APTT D-Dimer Sodium 136 L Chloride Carbon Dioxide BUN 23 H Creatinine Glucose 150 H Calcium AST 122 H Alkaline Phosphatase 23 L Lactate Dehydrogenase C-Reactive Protein Albumin 3.4 L Coronavirus (PCR) Positive A 04/26/21 07:12 WBC MCV MCH RDW Lymph % (Auto) Lymph # (Auto) Seg Neutrophils % APTT D-Dimer Sodium Chloride Carbon Dioxide BUN 24 H Creatinine Glucose 114 H Calcium 8.3 L AST 97 H Alkaline Phosphatase 25 L Lactate Dehydrogenase C-Reactive Protein Albumin 3.4 L Coronavirus (PCR)
[2021-04-26] MEDS: REMDESIVIR 100 MG in SODIUM CHLORIDE 0.9% 250ML 250 ML IV SCH (22:18)
[2021-04-26] MEDS: SODIUM CHLORIDE 0.9% 50 ML IVPB IV SCH (22:18)
[2021-04-27 05:22] VITALS: BP 142/88
[2021-04-27 06:50] LABS: Alanine Aminotransferase 38 units/L (7-56); Albumin 3.2 g/dL (3.9-5); BUN/Creatinine Ratio 26; Blood Urea Nitrogen 21 mg/dL (7-17); Calcium 8.9 mg/dL (8.4-10.2); Hemolysis Index 2
--- NOTE | 2021-04-27 09:07 | Discharge Summary ---
Providers - Providers Date of Admission: 04/24/21 11:17 Attending physician: SUSIE PARHAM MD 04/24/21 05:38 Consult to Physician [CONS] Routine Comment: Consulting Provider: EDIL HAMILTON Physician Instructions: Reason For Exam: Covid 04/24/21 05:48 PICC Line Insertion [Consult to PICC Line RN] [CONS] Stat Reason For Exam: IV access Type Line:: Midline 04/24/21 11:51 Consult to Physician [CONS] Routine Comment: Consulting Provider: LINDSEY HONG Physician Instructions: Reason For Exam: hypoxic respiratory failure 04/24/21 11:52 Consult to Physician [CONS] Routine Comment: Consulting Provider: HAYLIE VELA Physician Instructions: Reason For Exam: chf 04/25/21 10:51 Occupational Therapy Evaluate and Treat [CONS] Urgent Comment: Reason For Exam: To assess ADL status Physical Therapy Evaluation and Treat [CONS] Urgent Comment: Reason For Exam: To eval mobility status Primary care physician: SOLE SPLITTER Hospitalization Reason for admission: shortness of breath Condition: Stable Hospital course: 46-year-old female with past medical history of congestive heart failure was brought to the emergency room because patient complained of progressive shortness of breath associated with cough and fever for the last 10 days .she reports fever, cough, shortness of breath, diarrhea. Patient states she got tested for Covid a couple days ago but has not yet received the results. Patient is unvaccinated. In the emergency room patient chest x-ray showed patchy bibasilar airspace opac ities concerning for pneumonia. CXR with bilateral opacities concerning for Pneumonia ECHO: 50-55% EF 04/25: Reviewed records as noted above and discussed with cardiology team. Patient clinically improving. She understands her diagnosis of COVID-19 we will continue to monitor oxygen level. We will do oxygen home evaluation in a.m. as patient is on 3 L at bedtime and if stable will anticipate discharge in a.m. to complete her steroids for now continue remdesivir and dexamethasone. 04/26: Patient reports dizziness every time she is off her oxygen. A home O2 evaluation was done early hours of this morning the patient was satting 90%. I do not know how long she ambulated for. She is very anxious this morning about the prospect of being discharged and wanted to stay in the hospital 2 more days. I told Kirk reevaluate her in the next 24 hours and see how she does. She understands management outpatient. Also discussed the importance of activity as she is at high risk for VTE's she verbalized understanding. We will repeat home O2 evaluation in the next 24 hours for discharge. We will also check orthostatic vitals at this time. Patient is at high risk due to her severe morbid obesity she understands the importance of losing weight 04/27: Doing well, intermittent cough, no dizziness, explained the oxygen home test qualification process, she verbalized understanding, Nursing to eval for home o2 prior to discharge today. (1) Acute respiratory failure with hypoxia Current Visit: Yes Status: Acute Plan to address problem: Oxygen via nasal penetrator per minute DuoNeb by nebulizer every 4 hours. Albuterol via nebulizer every 4 hours as needed. Dexamethasone 6 mg IV daily. Rocephin 2 g IV daily and Zithromax 500 mg IV daily. We will do the blood cultures sputum culture. Follow Covid PCR and Covid inflammatory marker. We also consult infectious disease evaluation (2) COVID-19 virus infection Current Visit: Yes Status: Acute Plan to address problem: Oxygen via nasal penetrator per minute DuoNeb by nebulizer every 4 hours. Albuterol via nebulizer every 4 hours as needed. Dexamethasone 6 mg IV daily. Rocephin 2 g IV daily and Zithromax 500 mg IV daily. We will do the blood cultures sputum culture. Follow Covid PCR and Covid inflammatory marker. We also consult infectious disease evaluation (3) Pneumonia Current Visit: Yes Status: Acute Plan to address problem: Rocephin 2 g IV daily and Zithromax 500 mg IV daily. We will do the blood cultures sputum culture. Follow Covid PCR and Covid inflammatory marker. We also consult infectious disease evaluation (4) Congestive heart failure Current Visit: Yes Status: Acute Plan to address problem: Stable we will continue the home medication. We will monitor the patient closely (5) Obesity Current Visit: Yes Status: Acute Plan to address problem: We counseled the patient regarding weight reduction and diet and exercise Disposition: HOME HEALTH CARE SERVICE Final Discharge Diagnosis (Prints w/discharge instructions): Acute respiratory failure with hypoxia secondry to covid 19 Time spent for discharge: 35 mins Core Measure Documentation - Palliative Care Palliative Care/ Comfort Measures: Not Applicable - Core Measures Any of the following diagnoses?: none Exam - Physical Exam Narrative exam: VITAL SIGNS: Reviewed. GENERAL: The patient appears normally developed, morbidly obese vital signs as documented. HEAD: No signs of head trauma. EYES: Pupils are equal. Extraocular motions intact. EARS: Hearing grossly intact. MOUTH: Oropharynx is normal. NECK: No adenopathy, no JVD. CHEST: Chest with diminished breath sounds bilaterally. No wheezes, rales, or rhonchi. CARDIAC: Regular rate and rhythm. S1 and S2, without murmurs, gallops, or rubs. VASCULAR: No Edema. Peripheral pulses normal and equal in all extremities. ABDOMEN: Soft, non tender and non distended. No rebound or guarding, and no masses palpated. Bowel Sounds normal. MUSCULOSKELETAL: Good range of motion of all major joints. Extremities without clubbing, cyanosis or edema. NEUROLOGIC EXAM: Alert and oriented x 3 No focal sensory or strength deficits. Speech normal. Follows commands. PSYCHIATRIC: Mood normal. SKIN: detail exam as documented in skin assessment - Constitutional Vitals: Temp Pulse Resp BP Pulse Ox 97.7 F 53 L 16 142/88 98 04/27/21 04:13 04/27/21 04:13 04/27/21 04:13 04/27/21 04:13 04/27/21 04:13 Plan Activity: advance as tolerated, fall precautions Diet: low fat Special Instructions: record daily weights, record daily BP diary Follow up with: PRIMARY CAREMD [Primary Care Provider] - 3-5 Days LYNN MCKINLEY MD [Staff Physician] - 7 Days Prescriptions: dexAMETHasone [Decadron] 8 mg PO DAILY #14 tablet Apixaban [Eliquis] 2.5 mg PO BID #60 tablet Hydrocodone Bit/Homatrop Me-Br [Hycodan 5 mg-1.5 mg/5 ml Soln] 5 ml PO Q6H PRN 5 Days syrup PRN Reason: Cough Ascorbic Acid [Vitamin C] 1,000 mg PO DAILY #30 tablet.er Cholecalciferol (Vitamin D3) [Vitamin D3] 5,000 unit PO DAILY #30 tablet Zinc Sulfate 220 mg PO DAILY #30 capsule
[2021-04-27] MEDS ORDERED: DEXAMETHASONE 4 MG TAB PO SCH (10:00)
[2021-04-27] MEDS: ENOXAPARIN 150 MG/1 ML INJ SUB-Q SCH (11:09)
[2021-04-27] MEDS: FAMOTIDINE 20 MG TAB PO SCH (11:09)
--- NOTE | 2021-04-27 12:20 | Progress Note ---
Assessment and Plan Acute hypoxemic respiratory failure Coronavirus-19 infection Pneumonia due to COVID-19 virus Congestive heart failure Obesity - Remdesivir as per ID/Pulmonary developed protocols (Received) - complete systemic steroids course for severe COVID-19 infection - follow repeat COVID tests results - zinc and vitamin C supplementation - Monitor inflammatory markers per facility protocol - ferritin, Ddimer, CRP - therapeutic anticoagulation per system Protocol based on d-dimer and clinical considerations - Continue contact and airborne isolation - continue to wean supplemental oxygen to keep O2 sats > 92% - bronchodilators (ERIK) with pulm hygiene per RT - continue to avoid nephrotoxins, renally dose all medications - continue mobility protocols to prevent pressure ulcers - PT/OT as tolerated - Wound care per RN/WCT - continue accuchecks with glycemic control per SSI for target blood glucose < 180 mg/dL - Smoking cessation strongly counseled at the bedside - home oxygen evaluation at discharge - GI & VTE prophylaxis - Flu & pneumovax per protocol - Pulmonary out patient follow up for PFTs and optimization of respiratory status - continue other care per attending / other consultants - prn analgesia per pain score ... re-evaluate in am & pr Subjective Date of service: 04/27/21 Principal diagnosis: Ac. hypoxemic resp failure; COVID-19 infection; Pneumonia; CHF; Obesity Interval history: Patient is seen today for: Acute hypoxemic respiratory failure; COVIUD-19 infection; Pneumonia; CHF; Obesity Seen and examined at bedside; 24hour events reviewed; nursing and respiratory ca re staff consulted; no adverse overnight events reported to me; resting peacefully in bed; Objective Vital Signs - 12hr 04/27/21 04/27/21 04:13 09:39 Temperature 97.7 F Pulse Rate 53 L Respiratory 16 Rate Blood Pressure 142/88 O2 Sat by Pulse 98 96 Oximetry Constitutional: no acute distress, alert Eyes: non-icteric ENT: oropharynx moist Neck: supple, no lymphadenopathy Effort: mildly labored Ascultation: Bilateral: diminished breath sounds, rhonchi Cardiovascular: regular rate and rhythm Gastrointestinal: normoactive bowel sounds, soft, non-tender Integumentary: normal Extremities: no cyanosis, no edema Neurologic: non-focal exam, pupils equal and round Psychiatric: mood appropriate CBC and BMP: 04/25/21 05:38 04/27/21 05:55 ABG, PT/INR, D-dimer: PT/INR, D-dimer PT 13.1 Sec. (12.2-14.9) 04/23/21 19:40 INR 0.93 (0.87-1.13) 04/23/21 19:40 D-Dimer 1065.76 ng/mlDDU (0-234) H 04/27/21 05:55 Abnormal lab findings: Abnormal Labs 04/23/21 04/23/21 04/23/21 19:34 19:40 19:40 WBC MCV 77 L MCH 25 L RDW 16.1 H Lymph % (Auto) Lymph # (Auto) 0.7 L Seg Neutrophils % 77.6 H APTT 37.5 H D-Dimer Sodium 132 L Chloride 95.9 L Carbon Dioxide 21 L BUN Creatinine 1.3 H Glucose Calcium AST 88 H Alkaline Phosphatase 25 L Lactate Dehydrogenase C-Reactive Protein Total Protein Albumin 3.5 L Coronavirus (PCR) 04/24/21 04/24/21 04/24/21 09:51 14:58 17:22 WBC MCV MCH RDW Lymph % (Auto) Lymph # (Auto) Seg Neutrophils % APTT D-Dimer 1250.51 H Sodium 131 L Chloride 94.3 L Carbon Dioxide 21 L BUN 21 H Creatinine 1.3 H Glucose 102 H 104 H Calcium AST 118 H Alkaline Phosphatase 22 L Lactate Dehydrogenase 605 H C-Reactive Protein 6.20 H Total Protein Albumin 3.2 L Coronavirus (PCR) 04/24/21 04/25/21 04/25/21 Unknown 05:38 05:38 WBC 3.5 L MCV 76 L MCH 25 L RDW 16.5 H Lymph % (Auto) 13.1 L Lymph # (Auto) 0.5 L Seg Neutrophils % 82.2 H APTT D-Dimer Sodium 136 L Chloride Carbon Dioxide BUN 23 H Creatinine Glucose 150 H Calcium AST 122 H Alkaline Phosphatase 23 L Lactate Dehydrogenase C-Reactive Protein Total Protein Albumin 3.4 L Coronavirus (PCR) Positive A 04/26/21 04/27/21 04/27/21 07:12 05:55 05:55 WBC MCV MCH RDW Lymph % (Auto) Lymph # (Auto) Seg Neutrophils % APTT D-Dimer 1065.76 H Sodium Chloride Carbon Dioxide BUN 24 H 21 H Creatinine Glucose 114 H 122 H Calcium 8.3 L AST 97 H 80 H Alkaline Phosphatase 25 L 24 L Lactate Dehydrogenase C-Reactive Protein 1.60 H Total Protein 6.2 L Albumin 3.4 L 3.2 L Coronavirus (PCR)
--- NOTE | 2021-04-27 15:14 | Progress Note ---
Assessment and Plan Cultures: SARS CoV2 PCR: Positive Blood culture: no growth A/P: 46-year-old female with CHF: #Bilateral pneumonia: Secondary to COVID-19 #Acute hypoxic respiratory failure: Secondary to COVID-19. #CHF: cardiology on board. #Morbid obesity #Leukopenia: Likely secondary to COVID-19 Recs: IV/PO Dexamethasone 8 mg daily x 10 days, higher dose due to morbid obesity continue Remdesivir while she is inpatient Discharge if clears ambulatory sats testing Roselyn Lundy MD, FACP [facility] O: [phone] F: [phone] Subjective Date of service: 04/27/21 Principal diagnosis: Ac. hypoxemic resp failure; COVID-19 infection; Pneumonia; CHF; Obesity Interval history: No fever. Awaiting ambulatory saturations. Objective - Exam Narrative Exam: Physical Exam (reviewed in chart to minimize risk of transmission) Constitutional: deferred Head, Ears, Nose: deferred Eyes: deferred Neck: deferred Oral: deferred Cardiovascular: deferred Respiratory: deferred GI: deferred Musculoskeletal: deferred Skin: deferred Hem/Lymphatic: deferred Psych: deferred Neurological: deferred - Constitutional Vitals: Vital Signs Temp Pulse Resp BP Pulse Ox 97.7 F 53 L 16 142/88 96 04/27/21 04:13 04/27/21 04:13 04/27/21 04:13 04/27/21 04:13 04/27/21 09:39 Temperature -Last 24 Hours Temperature 97.7 F Temperature 97.9 F Temperature 98.3 F - Labs CBC & Chem 7: 04/25/21 05:38 04/27/21 05:55 Labs: Abnormal lab results 04/27/21 04/27/21 Range/Units 05:55 05:55 D-Dimer 1065.76 H (0-234) ng/mlDDU BUN 21 H (7-17) mg/dL Glucose 122 H (65-100) mg/dL AST 80 H (5-40) units/L Alkaline Phosphatase 24 L (35-129) units/L C-Reactive Protein 1.60 H (0.00-1.30) mg/dL Total Protein 6.2 L (6.3-8.2) g/dL Albumin 3.2 L (3.9-5) g/dL
== END 2021-04-27 20:45 | disposition home health service (06) | DRG 871 ==
LOC: ED 16:33 → 3A 04-24 05:38 → OBSVTOIN 04-24 11:17 → 3A 04-25 20:16
PROVIDERS: ADMIT Hospitalist; ATTEND Internal Medicine
PROC: XW033E5 Introduction of Remdesivir Anti-infective into Peripheral Vein, Percutaneous Approach, New Technology Group 5 (ICD-10-PCS; principal; 2021-04-24)
DX: A41.89 Other specified sepsis (principal); U07.1 COVID-19; J96.01 Acute respiratory failure with hypoxia; J12.82 Pneumonia due to coronavirus disease 2019; Z68.42 Body mass index [BMI] 45.0-49.9, adult; I50.9 Heart failure, unspecified; E66.01 Morbid (severe) obesity due to excess calories; D72.819 Decreased white blood cell count, unspecified; I11.0 Hypertensive heart disease with heart failure; F17.200 Nicotine dependence, unspecified, uncomplicated; Z79.899 Other long term (current) drug therapy
CPT/HCPCS: 36415; 71046; 80053; 82140; 82728; 82947; 83615; 83880; 84145; 84484; 84703; 85025; 85379; 85610; 85730; 86140; 87040; 93005; 93306; 94640; 94760; G0378; J0456; J0696; J1100; J1644; J1650; J7050; J8540; U0003